=== PATIENT | male | born 1955 | race Caucasian/White ===

== ENCOUNTER 2019-04-20 15:50 | Inpatient (IN) ==
[2019-04-20] MEDS ORDERED: Aspirin 81 MG TAB.CHEW PO ONE (16:15)
--- NOTE | 2019-04-20 16:20 | Emergency Department Note ---
Disposition Clinical Impression: CVA (cerebral vascular accident) Qualifiers: CVA mechanism: unspecified Qualified Code(s): I63.9 - Cerebral infarction, unspecified Disposition: Admitted As Inpatient Condition: Good Time of Disposition: 18:44 General Adult HPI - General Chief complaint: ED Dizziness Stated complaint: Right arm numbness,dizziness Time Seen by Provider: 04/20/19 16:02 Nursing Notes Reviewed: Yes Vital Signs Reviewed: Yes - History of Present Illness HPI Narrative: 63yo male presents with son bedside for evaluation of RUE numbness. Last known well was 3pm yesterday; 25hrs prior to arrival. Patient awoke this afternoon from a nap and felt unwell. Prior to this, he had been sitting under a shade tree; no notable exertion. 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 No trauma. No EtOH or illicit substances. PMH: HTN, HLD, hx CVA Patient takes medications but does not know any of his medications. ROS: Pos: RUE numbness Neg: any extremity weakness, fall, confusion, headache, chest pain, palpitations, dyspnea, diaphoresis, abdominal pain. Pain Scale: 0 - Related Data Home Medications Medication Instructions Recorded Confirmed Unable To Obtain [Unable to Obtain] 04/20/19 04/20/19 Allergies Allergy/AdvReac Type Severity Reaction Status Date / Time No Known Allergies Allergy Verified 08/26/18 10:40 All systems ED: reviewed and negative except as stated. Review of Systems: As Per HPI Past Medical History - Past Medical History Medical history: Reports: hyperlipidemia, hypertension, TIA - Social History Smoking Status: Current every day smoker Smokeless Tobacco Status: No Alcohol use: Reports: none Drug use: Reports: none Physical Exam Vital Signs Reviewed General: Patient is alert, oriented, and in no acute distress. Patient appears ill kempt. Head: atraumatic, normocephalic Eye: normal appearance, PERRL, EOMI, no scleral icterus, no conjunctival in jection ENT: mucous membranes moist, normal external ear exam Neck: normal inspection, trachea midline, full ROM Chest: normal inspection, symmetric chest rise Respiratory: Good respiratory effort. Next report phase. Bilateral breath sounds are clear without wheezing, crackles, or rhonchi. Cardiovascular: Regular rate and rhythm. No clicks, rubs, gallops, or murmors. Normal heart sounds. Bilateral radial pulses 2/4 equal. Abdomen: Bowel sounds present normoactive. Abdomen is soft, nondistended, and nontender. No guarding or rebound. No organomegaly noted. Musculoskeletal: Spontaneously moving all extremities. Skin: warm, dry, intact. Neuro: GCS 15. Patient is very hard of hearing but will answer questions appropriately. Extremity strength 5/5 and equal in bilateral upper and lower extremities. Right upper extremity pronator drifts that does not hit the bed. Positive finger to nose in the right upper extremity. Reduced sensation to light touch in the right upper extremity. Left upper extremity sensation intact with negative left upper extremity finger to nose and no left pronator drift. No limb drift in the bilateral lower extremities. Sensation light touch equal bilateral lower extremity is. Patient is answering questions appropriately without slurring of speech or facial asymmetry. Psych: Patient's affect is appropriate for situation. Course Course Narrative: LKW 25hours prior to arrival. NIHSS 3 EKG dated 04/20/2018 at 16:11 interpreted as sinus rhythm with rate of 89. AK 158, QRS 99, QTC 432. Normal axis. Good R-wave progression. Nonspecific ST-T changes. No previous EKG for comparison. Chart check shows: PMH: hypertension, hyperlipidemia, GERD, CAD with no stents, BPH Medications: amlodipine, aspirin 81 mg, carvedilol, Lasix, lisinopril- hydrochlorothiazide, omeprazole, potassium chloride, simvastatin, tamsulosin Serum hematology serum chemistry unremarkable. CT head shows late subacute ischemia to the medial temporal occipital lobe. Patient provided 324 aspirin. I discussed the above with the on-call neurologist, Dr. Holland. Discussed the patient's history, presentations, CT scan, aspirin. Recommend CTA head and neck at this time as well as admission to the hospital for stroke workup. Consult placed. I discussed the above with the admitting hospitalist, Dr. Bronson, who agrees us at the patient for CVA with plan for stroke workup. Head CT 04/20/19 16:16 IMPRESSION: Wedge-shaped area of hypodensity within the left medial temporal and the left occipital lobe, compatible with age-indeterminate ischemia, probably late subacute. Additional focal areas of chronic ischemia within the basal ganglia bilaterally. No acute abnormality is detected. D/ / Сергей Peoples MD / Сергей Peoples MD Interpreting Provider: Сергей Peoples MD Vital Signs Temperature 98.0 F 04/20/19 15:52 Pulse Rate 93 04/20/19 15:52 Respiratory Rate 16 04/20/19 15:52 Blood Pressure 149/88 04/20/19 15:52 O2 Sat by Pulse Oximetry 96 04/20/19 15:52 Temperature 98.0 F 04/20/19 16:33 Pulse Rate 79 04/20/19 18:00 Respiratory Rate 16 04/20/19 16:33 Blood Pressure 135/71 04/20/19 18:00 O2 Sat by Pulse Oximetry 96 04/20/19 16:33 Oxygen Delivery Oxygen Delivery Room Air Medical Decision Making - Lab Data Result diagrams: 04/20/19 16:19 04/20/19 16:19 Lab Results 04/20/19 04/20/19 04/20/19 Range/Units 16:19 16:19 16:19 WBC 9.5 (4.3-11.1) K/mcL RBC 5.35 (4.19-5.50) M/mcL Hgb 16.5 (12.9-16.9) g/dL Hct 48.8 (37.5-50.1) % MCV 91.2 (83.0-100.0) fL MCH 30.8 (28.0-33.3) pg MCHC 33.8 (31.6-35.5) g/dL RDW 13.2 (11.5-14.5) % Plt Count 237 (140-400) K/mcL MPV 10.6 (9.4-12.4) fL PT 13.4 H (9.4-12.1) Seconds INR 1.2 APTT 32.5 (26.0-36.0) Seconds Sodium 138 (136-145) mEq/L Potassium 3.8 (3.5-5.1) mEq/L Chloride 105 (98-107) mEq/L Carbon Dioxide 26 (23-29) mEq/L BUN 19 (8-23) mg/dL Creatinine 0.94 (0.70-1.30) mg/dL Est GFR ( Amer) > 60 (> 60) Est GFR (Non-Af Amer) > 60 (> 60) BUN/Creatinine Ratio 20 (6-26) Glucose 105 (70-105) mg/dL Calculated Osmolality 289 (280-300) Calcium 9.6 (8.6-10.3) mg/dL Creatine Kinase 30 (30-223) Units/L Troponin I < 0.03 (< 0.04) ng/mL NIH Stroke Scale - Level of Consciousness LOC: Alert - LOC Questions LOC Questions: Answers both correctly - LOC Commands LOC Commands: Performs both correctly - Best Gaze Best Gaze: Normal - Visual Visual: No visual loss - Facial Palsy Facial Palsy: Normal - Motor Arms Motor Arm-Left: No drift for 10 seconds Motor Arm-Right: Drift, does NOT hit bed - Motor Legs Motor Leg-Left: No drift for 5 seconds Motor Leg-Right: No drift for 5 seconds - Limb Ataxia Limb Ataxia: Present in ONE limb - Sensory Sensory: Mild to moderate loss, "not as sharp" - Best Language Best Language: No aphasia - Dysarthria Dysarthria: Normal - Extinction and Inattention Extinction and Inattention: Normal - NIHSS Total Score NIHSS Total Score: 3
[2019-04-20 16:30] LABS: Hematocrit 48.8 % (37.5-50.1); Hemoglobin 16.5 g/dL (12.9-16.9); Mean Corpuscular HGB Conc 33.8 g/dL (31.6-35.5); Mean Corpuscular Hemoglobin 30.8 pg (28.0-33.3); Mean Corpuscular Volume 91.2 fL (83.0-100.0); Mean Platelet Volume 10.6 fL (9.4-12.4); Platelet Count 237 K/mcL (140-400); Red Blood Count 5.35 M/mcL (4.19-5.50); Red Cell Distribution Width 13.2 % (11.5-14.5); White Blood Count 9.5 K/mcL (4.3-11.1)
[2019-04-20] MEDS ORDERED: 0.9 % Sodium Chloride 1,000 ML IVC ONE (16:33)
[2019-04-20 16:38] LABS: INR 1.2; Prothrombin Time 13.4 Seconds (9.4-12.1)
[2019-04-20 16:40] LABS: Activated Partial Thrombo Time 32.5 Seconds (26.0-36.0)
[2019-04-20 16:52] LABS: BUN/Creatinine Ratio 20 (6-26); Blood Urea Nitrogen 19 mg/dL (8-23); Calcium 9.6 mg/dL (8.6-10.3); Carbon Dioxide 26 mEq/L (23-29); Chloride 105 mEq/L (98-107); Glucose 105 mg/dL (70-105); Osmolality,Calculated 289 (280-300); Potassium 3.8 mEq/L (3.5-5.1); Sodium 138 mEq/L (136-145); Troponin I < 0.03 ng/mL (< 0.04); eGFR For African Americans > 60 (> 60); eGFR For Non-African Americans > 60 (> 60)
[2019-04-20 17:50] LABS: Creatine Kinase 30 Units/L (30-223)
--- NOTE | 2019-04-20 18:15 | Emergency Department Note ---
Disposition Clinical Impression: CVA (cerebral vascular accident) Qualifiers: CVA mechanism: unspecified Qualified Code(s): I63.9 - Cerebral infarction, unspecified Disposition: Admitted As Inpatient Condition: Good Forms: ED Satisfaction Letter Time of Disposition: 18:15 General Adult HPI - General Chief complaint: ED Dizziness Stated complaint: Right arm numbness,dizziness Time Seen by Provider: 04/20/19 16:02 Source: patient, family Limitations: no limitations - History of Present Illness Pain Scale: 0 - Related Data Home Medications Medication Instructions Recorded Confirmed Unable To Obtain [Unable to Obtain] 04/20/19 04/20/19 Allergies Allergy/AdvReac Type Severity Reaction Status Date / Time No Known Allergies Allergy Verified 08/26/18 10:40 Past Medical History - Past Medical History Medical history: Reports: hyperlipidemia, hypertension, TIA Psychiatric history: Reports: no psych history - Social History Smoking Status: Current every day smoker Smokeless Tobacco Status: No Alcohol use: Reports: none Drug use: Reports: none Physical Exam - General Limitations: no limitations General appearance: alert, in no apparent distress Course Vital Signs Temperature 98.0 F 04/20/19 15:52 Pulse Rate 93 04/20/19 15:52 Respiratory Rate 16 04/20/19 15:52 Blood Pressure 149/88 04/20/19 15:52 O2 Sat by Pulse Oximetry 96 04/20/19 15:52 Temperature 98.0 F 04/20/19 16:33 Pulse Rate 93 04/20/19 16:33 Respiratory Rate 16 04/20/19 16:33 Blood Pressure 149/88 04/20/19 16:33 O2 Sat by Pulse Oximetry 96 04/20/19 16:33 Oxygen Delivery Oxygen Delivery Room Air Medical Decision Making - Lab Data Result diagrams: 04/20/19 16:19 04/20/19 16:19 Lab Results 04/20/19 04/20/19 04/20/19 Range/Units 16:19 16:19 16:19 WBC 9.5 (4.3-11.1) K/mcL RBC 5.35 (4.19-5.50) M/mcL Hgb 16.5 (12.9-16.9) g/dL Hct 48.8 (37.5-50.1) % MCV 91.2 (83.0-100.0) fL MCH 30.8 (28.0-33.3) pg MCHC 33.8 (31.6-35.5) g/dL RDW 13.2 (11.5-14.5) % Plt Count 237 (140-400) K/mcL MPV 10.6 (9.4-12.4) fL PT 13.4 H (9.4-12.1) Seconds INR 1.2 APTT 32.5 (26.0-36.0) Seconds Sodium 138 (136-145) mEq/L Potassium 3.8 (3.5-5.1) mEq/L Chloride 105 (98-107) mEq/L Carbon Dioxide 26 (23-29) mEq/L BUN 19 (8-23) mg/dL Creatinine 0.94 (0.70-1.30) mg/dL Est GFR ( Amer) > 60 (> 60) Est GFR (Non-Af Amer) > 60 (> 60) BUN/Creatinine Ratio 20 (6-26) Glucose 105 (70-105) mg/dL Calculated Osmolality 289 (280-300) Calcium 9.6 (8.6-10.3) mg/dL Creatine Kinase 30 (30-223) Units/L Troponin I < 0.03 (< 0.04) ng/mL Attestation Statement - Attestation Attestation: I reviewed the residents documentation and agree with the residents assessment and plan of care. I have personally had face to face time with the patient. (Brief History, Brief Exam, and MDM) I personally supervised and was present for the irving/critical portions of the following procedures completed by the resident: (add procedures performed here). 63 year old male presnts to the eD with complaints of right arm numbness and loss of strength and dificulty with finger to nose. Garcia states that this has been going on since 3:00pm yesterday and that he went to bed and woke up and it was worse. Garcia appesrs to have a late subacute stroke on the left hemisphere and we have discussed case with neurology who recommends admission to the hospital. Patient is agreeable to the plan.
[2019-04-20] MEDS ORDERED: Isovue-370 500 ML BOTTLE IVP ONE (18:26)
[2019-04-20 20:20] LABS: Chol/HDL Ratio 5.9 (0-4.9); Cholesterol 200 mg/dL (< 200); HDL Cholesterol 34 mg/dL (40-59); LDL Cholesterol,Calculated 128 mg/dL (0-99); Triglycerides 188 mg/dL (< 150)
[2019-04-20 20:34] LABS: Thyroid Stimulating Hormone 1.638 mcIU/mL (0.340-5.600)
--- NOTE | 2019-04-20 21:08 | Internal Med History&Physical ---
Date of Encounter: 04/20/19 Time of Encounter: 21:07 Internal Medicine - H&P: HPI Chief complaint: dizziness Admitted From: Home Plans for Post Hospital Care: Home History of present illness: Rodger Wolfe is a 63 year old man every day smoker with hypertension, hyperlipidemia and prior CVA who was brought to the emergency room with a complaint of right upper extremity numbness and weakness that started yesterday at 3 PM he was brought in now because he woke up this afternoon and felt generally unwell, tired and dizzy. CVA history reportedly affected his left side for 5 years ago but has no sequela of this. Denies history of alcohol or illicit drug use. He reports adherence to his medications but does not recall what his medications are. He was hemodynamically stable. Stroke alert was not called because of the time of onset however our neurologist was contacted for further recommendations. Head CT showed a wedge-shaped area of hypodensity within the left medial temporal and the left occipital lobe compatible with age- indeterminate ischemia probably late subacute. Additional focal areas of chronic ischemia within the basal ganglia bilaterally. 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 He is admitted for further care. He denies having headache, ongoing dizziness, and chest pain but feels generally fatigued. Vitals: Reviewed General: Obese white man lying in bed in NAD Skin: Warm and dry. HEENT: Moist mucous membranes. No conjunctivae pallor. Neck: No lymphadenopathy. No JVD. No carotid bruits. No palpable thyroid. Chest: Normal thoracic expansion. Normal breath sounds. Clear to auscultation. Heart: Normal S1 & S2; rhythmic. No rubs or murmurs. Abdomen: soft and non-tender to palpation. No peritoneal reaction. Extremities: 3-4/5 RUE/RLE strength. Left extremities with sensation and s trength intact. Neurological: Awake, alert and oriented to person. Psych: Affect appropriate. Assessment/Plan 1. Acute CVA: Will start aspirin and statin therapy. Will undergo urgent MRI. Neurology consultation requested. Perform echo in the morning. Monitor on telemetry. 2. HTN: Well controlled at this time. Await home meds confirmation. 3. Hyperlipidemia: Check lipid panel. Start statin. 4. Tobacco use: 5 minutes were spent counseling and educating the patient on this habit. resident services director and resources were made available. Past Med Surg Social Fam HX - Past Medical History Medical history: hyperlipidemia, hypertension, TIA Psychiatric history: no psych history - Social History Smoking Status: Current every day smoker Smokeless Tobacco Status: No Alcohol use: none Drug use: none Internal Medicine - H&P: Meds Unable To Obtain [Unable to Obtain] 04/20/19 [History] Allergy/AdvReac Type Severity Reaction Status Date / Time No Known Allergies Allergy Verified 08/26/18 10:40 All Systems PM: A 10-system review of systems was performed and is negative for pertinent findings except as documented above in the HPI. Family history reviewed and f ound non-contributory. - Constitutional Vitals: Temp Pulse Resp BP Pulse Ox 97.7 F 90 16 127/67 98 04/20/19 20:08 04/20/19 20:08 04/20/19 20:08 04/20/19 20:08 04/20/19 20:08 Exam: . Internal Med - H&P Results - Labs CBC & Chem 7: 04/20/19 16:19 04/20/19 16:19 Labs: Short CBC 04/20/19 Range/Units 16:19 WBC 9.5 (4.3-11.1) K/mcL Hgb 16.5 (12.9-16.9) g/dL Hct 48.8 (37.5-50.1) % Plt Count 237 (140-400) K/mcL BMP 04/20/19 16:19 Sodium 138 Potassium 3.8 Chloride 105 Carbon Dioxide 26 BUN 19 Creatinine 0.94 Glucose 105 Calcium 9.6 Cardiac Enzymes 04/20/19 Range/Units 16:19 Troponin I < 0.03 (< 0.04) ng/mL - Impressions ITS Impressions Head CT 04/20/19 16:16 IMPRESSION: Wedge-shaped area of hypodensity within the left medial temporal and the left occipital lobe, compatible with age-indeterminate ischemia, probably late subacute. Additional focal areas of chronic ischemia within the basal ganglia bilaterally. No acute abnormality is detected. D/ / Сергей Peoples MD / Сергей Peoples MD Interpreting Provider: Сергей Peoples MD Head CTA 04/20/19 18:26 IMPRESSION: No focal significant arterial narrowing in the neck. 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 Multifocal mild right [employer] narrowing Critical results were called by Dr. Thad Ruiz to Dr. Naidu On 04/20/2019 at 20:09. D/ / Thad Ruiz / Thad Ruiz Interpreting Provider: Thad Ruiz Neck CTA 04/20/19 18:26 IMPRESSION: No focal significant arterial narrowing in the neck. 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 Multifocal mild right [employer] narrowing Critical results were called by Dr. Thad Ruiz to Dr. Naidu On 04/20/2019 at 20:09. D/ / Thad Ruiz / Thad Ruiz Interpreting Provider: Thad Ruiz - Time Spent With Patient Total time spent is greater than 50% in coordination of care (as documented) at patient's floor/unit and/or counseling patient: Greater than 35 minutes
[2019-04-20 21:30] LABS: Estimated Average Glucose 140 mg/dl
[2019-04-20] MEDS: Acetaminophen 325 MG TABLET PO PRN (22:10)
--- NOTE | 2019-04-20 23:10 | Event Note ---
Date of Encounter: 04/20/19 Time of Encounter: 20:02 Alerted by patient's nurse JADA Castillo that [facility] had called about the patient's CTA of the head and neck and wished to speak with me. Spoke to Dr. 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 Multifocal mild right [employer] narrowing. Paged Dr. Holland to discuss these results w/recommendation to continue aspirin and monitor pt. closely until he can see him in the a.m. MRI of the head/brain ordered by Dr. Garcia d/t pts. CVA sx which showed a large area of acute infarct in the left temporal occipital region extending superiorly towards the parietooccipital junction and the inferolateral aspect of the splenic a.m. of the corpus callosum. Curvilinear dark gradient echo signal in the left occipital pole raises the question of petechial hemorrhage. Multiple old infarcts. Paged Dr. Holland once again to discuss these new MRI findings. Dr. Holland recommends keeping the pt. here since there is no surgical intervention needed and to continue the plan as outlined and Neurology will see the pt. tomorrow. Pt. is alert and oriented and hemodynamically stable at this time. Q2HR Neuro checks ordered. [facility] HOP. Aspiration precautions w/meals and drinking. NIHSS Modifieds. Dr. Garcia made aware of these plans. Nurse instructed to continue monitoring the pt. closely and alert me immediately of any adverse changes.
[2019-04-21] MEDS ORDERED: *HR* Heparin 5,000 UNIT/ML VIAL SQ SCH (06:00)
[2019-04-21 07:12] LABS: Hematocrit 49.3 % (37.5-50.1); Hemoglobin 16.4 g/dL (12.9-16.9); Mean Corpuscular HGB Conc 33.3 g/dL (31.6-35.5); Mean Corpuscular Hemoglobin 30.7 pg (28.0-33.3); Mean Corpuscular Volume 92.3 fL (83.0-100.0); Mean Platelet Volume 10.7 fL (9.4-12.4); Platelet Count 196 K/mcL (140-400); Red Blood Count 5.34 M/mcL (4.19-5.50); Red Cell Distribution Width 13.2 % (11.5-14.5); White Blood Count 6.6 K/mcL (4.3-11.1)
[2019-04-21 07:57] LABS: BUN/Creatinine Ratio 20 (6-26); Blood Urea Nitrogen 16 mg/dL (8-23); Calcium 9.2 mg/dL (8.6-10.3); Carbon Dioxide 27 mEq/L (23-29); Chloride 108 mEq/L (98-107); Glucose 101 mg/dL (70-105); Osmolality,Calculated 291 (280-300); Potassium 4.3 mEq/L (3.5-5.1); Sodium 140 mEq/L (136-145); eGFR For African Americans > 60 (> 60); eGFR For Non-African Americans > 60 (> 60)
[2019-04-21] MEDS ORDERED: Aspirin 81 MG TAB.CHEW PO SCH (09:00)
[2019-04-21] MEDS: amLODIPine 5 MG TABLET PO SCH (09:40)
--- NOTE | 2019-04-21 11:30 | Neurology - Consult Note ---
Date of Encounter: 04/21/19 Time of Encounter: 11:28 Assessment and Plan (1) CVA (cerebral vascular accident) Current Visit: Yes Status: Acute Patient developed acute cerebral infarct secondary to left GRASS FARMER occlusion. Was on Aspirin 81mg daily and has had CVA 4 years ago. Would suggest to switch antiplatelet therapy from aspirin to Plavix. Continue statin therapy. Await stroke work up including echocardiography. Patient needs CPAP therapy as an outpatient. Patient advised not to drive due to right hemianopsia. Risk factor modification advised. follow up in neurology in 2-3 weeks with me to start him on CPAP therapy. Qualifiers: CVA mechanism: occlusion Precerebral and cerebral artery: posterior cerebral artery Laterality of affected vessel: left Qualified Code(s): I63.532 - Cerebral infarction due to unspecified occlusion or stenosis of left posterior cerebral artery History of Present Illness Chief complaint: dizziness, confusion and right facial numbness HPI: Mr. Wolfe is a 63 year old male with PMH significant for CVA 4 years ago, HTN, DEJON, obesity who developed acute onset of dizziness, not feeling well and visual changes. This occurred yesterday sometime in the morning and the patient can not remember exactly what happened. He was doing something and suddenly developed dizziness. He was brought to ER and initial CT of head showed wedge-shaped area of hypodensity within the left medial temporal and the left occipital lobe, compatible with age-indeterminate ischemia, probably late subacute. Patient not considered tPA candidate due to time of onset unknown. CTA of head showed occlusion of left GRASS FARMER. MRI of brain confirmed ischemic infarct in the area mentioned above. Patient has had stroke 4 years ago told to have a small stroke. Was started on Aspirin 81mg daily. He has also diagnosed DEJON but has not been on CPAP therapy. Patient seen at the bedside and he is feeling much better today. No focal weakness but testing showed right hemianopsia. Past Med Surg Social Fam HX - Past Medical History Medical history: hyperlipidemia, hypertension, TIA Psychiatric history: no psych history - Social History Smoking Status: Current every day smoker Smokeless Tobacco Status: No Alcohol use: none Drug use: none Medications and Allergies Simvastatin [Zocor] 20 mg PO HS 04/21/19 [History] Tamsulosin HCl [Flomax] 0.4 mg PO BID 04/21/19 [History] amLODIPine [Norvasc] 5 mg PO DAILY 04/21/19 [History] Allergy/AdvReac Type Severity Reaction Status Date / Time No Known Allergies Allergy Verified 08/26/18 10:40 All Systems: The remainder of the systems were reviewed and are negative - Constitutional Constitutional ROS IM: anorexia (no), chills (no), daytime sleepiness (no), excessive sweating (no) - Nose, Mouth, Throat Nose, mouth and throat: abnormal hearing (no), dizziness (yes), dry mouth (yes) - Cardiovascular Cardiovascular ROS IM: chest pain (no), chest pain at rest (no) - Respiratory Respiratory IM: cough (no), dyspnea (no), hemoptysis (no), dyspnea on exertion (no) - Gastrointestinal Gastrointestinal: abdominal pain (no) - Musculoskeletal Musculoskeletal ROS IM: arthralgias (no), back pain (no) - Neurological Neurological ROS: abnormal gait (no), abnormal hearing (no), abnormal movements (no), abnormal speech (no), dizziness (yes), other visual disturbances - Psychiatric Psychiatric general PM: auditory hallucinations (no), behavioral changes (no), suicidal ideation (no) Physical Examination - Vital Signs Vital Signs: Initial Vital Signs Temp Pulse Resp BP Pulse Ox 98.0 F 93 16 149/88 96 04/20/19 15:52 04/20/19 15:52 04/20/19 15:52 04/20/19 15:52 04/20/19 15:52 - Constitutional General appearance: comfortable - Neurologic Sensorimotor examination: intact Detailed motor examination: full strength in all major muscle groups Motor examination - right side: 5/5: deltoids, biceps, triceps, wrist flexion, wrist extension, facsimile machine operator, hip flexors, tibialis Anterior, quadriceps, toe extension (EHL), plantarflexion Motor examination - left side: 5/5: deltoids, biceps, triceps, wrist flexion, wrist extension, hip flexors, facsimile machine operator, quadriceps, tibialis Anterior, toe extension (EHL), plantarflexion Detailed sensory examination: intact Posture: other (none) Reflexes: Biceps: 1+, Triceps: 1+, Brachioradialis: 1+, Patella: 1+, Achilles: 1+ Mental Status Examination: awake, alert, oriented to person, oriented to place, oriented to time, follows commands appropriately, answers questions appropriately, no agnosia, no aphasia, no aproxia Cranial nerve examination: PERRL, EOMI, visual calvin intact (right hemianopsia noted), corneal reflexes brisk symmetrically, sensory to face intact, mastic ation intact, no facial asymmetry is present, no dysarthria, hearing is intact symmetrically, soft palate elevates bilaterally upon phonation, gag reflex intact, flexes SCM and trapezius muscles symmetrically with full power, tongue protrudes midline, no atrophy or facial fasiculations present Results - Laboratory Findings CBC and BMP: 04/21/19 06:44 04/21/19 06:44 Abnormal lab findings: Abnormal lab results PT 13.4 Seconds (9.4-12.1) H 04/20/19 16:19 Chloride 108 mEq/L (98-107) H 04/21/19 06:44 Hemoglobin A1c 6.5 % (-5.6) H 04/20/19 19:00 Triglycerides 188 mg/dL (< 150) H 04/20/19 16:19 Cholesterol 200 mg/dL (< 200) H 04/20/19 16:19 LDL Cholesterol, Calc 128 mg/dL (0-99) H 04/20/19 16:19 VLDL Cholesterol, Calc 38 mg/dL (< 31) H 04/20/19 16:19 HDL Cholesterol 34 mg/dL (40-59) L 04/20/19 16:19 Cholesterol/HDL Ratio 5.9 (0-4.9) H 04/20/19 16:19 - Diagnostic Findings Additional findings: CT OF THE HEAD WITHOUT CONTRAST 04/20/2019 2:14 pm TECHNIQUE: CT of the head was performed without the administration of intravenous contrast. Dose modulation, iterative reconstruction, and/or weight based adjustment of the mA/kV was utilized to reduce the radiation dose to as low as reasonably achievable. COMPARISON: None. HISTORY: ORDERING SYSTEM PROVIDED HISTORY: RUE decr sensation. LKW 25hrs GEOMORPHOLOGIST. FINDINGS: BRAIN/VENTRICLES: Wedge-shaped area of hypodensity is identified within the left occipital lobe, compatible with age-indeterminate ischemia, probably late subacute. No acute loss of the liu-white matter differentiation is identified. Focal chronic infarcts are identified within the basal ganglia bilaterally. No masses or hemorrhages within the brain parenchyma are found. Intracranial vasculature, including the dural venous sinuses, is unremarkable. ORBITS: No orbital abnormalities identified. SINUSES: Paranasal sinuses and mastoid air cells are clear. SOFT TISSUES/SKULL: Calvarium is intact. Extracranial soft tissues unremarkable. CT/CT head/brain wo con IMPRESSION: Wedge-shaped area of hypodensity within the left medial temporal and the left occipital lobe, compatible with age-indeterminate ischemia, probably late subacute. Additional focal areas of chronic ischemia within the basal ganglia bilaterally. No acute abnormality is detected. D/ / Сергей Peoples MD / Сергей Peoples MD Interpreting Provider: Сергей Peoples MD OF THE NECK; CTA OF THE HEAD WITHOUT AND WITH CONTRAST 04/20/2019 7:21 pm: TECHNIQUE: CTA of the neck was performed with the administration of intravenous contrast. Multiplanar reformatted images are provided for review. MIP images are provided for review. Stenosis of the internal carotid arteries measured using NASCET criteria. Dose modulation, iterative reconstruction, and/or weight based adjustment of the mA/kV was utilized to reduce the radiation dose to as low as reasonably achievable.; CTA of the head/brain was performed without and with the administration of intravenous contrast. Multiplanar reformatted images are provided for review. MIP images are provided for review. Dose modulation, iterative reconstruction, and/or weight based adjustment of the mA/kV was utilized to reduce the radiation dose to as low as reasonably achievable. COMPARISON: None. HISTORY: ORDERING SYSTEM PROVIDED HISTORY: late subacute cerebral ischemia; ORDERING SYSTEM PROVIDED HISTORY: late subacut cerebral ischem,RUE deficit.LKW 25+hr FINDINGS: CTA NECK: AORTIC ARCH/ARCH VESSELS: Vascular calcifications are noted. Otherwise, limited evaluation of the aorta demonstrates no focal abnormality. Great vessel origins are patent CAROTID ARTERIES: Left: Common carotid artery is patent to the bifurcation level. Calcifications are noted at the bifurcation and proximal left internal carotid artery. There is no focal significant narrowing. Right: Common carotid artery is patent. Bifurcation is patent. Right internal carotid artery is patent to the skull base VERTEBRAL ARTERIES: Right vertebral artery is larger than the left. Both are patent without focal significant narrowing. SOFT TISSUES: Multiple small cervical nodes are present. There is no pathologic enlargement. Multilevel intermediate density is noted in the anterior epidural space in the cervical spine. Venous plexus congestion is favored. Blood density would be difficult to exclude completely. BONES: No acute cervical osseous abnormality CTA HEAD: ANTERIOR CIRCULATION: Distal internal carotid artery calcifications are noted bilaterally. There is no focal significant narrowing. There is a tiny left posterior communicating artery. No middle or anterior cerebral artery narrowing is noted. POSTERIOR CIRCULATION: Right distal vertebral artery is larger than the left. Both are patent. Basilar artery is patent. There is occlusion of the left posterior cerebral artery just distal to its origin. Mild multifocal narrowing in the right posterior cerebral artery is noted. BRAIN: No midline shift is noted. Brain parenchymal detail is limited. Multiple old infarcts are noted. Again noted is a left medial temporal occipital ill-defined low-density. Low-density in the inferior right cerebellar parenchyma is not as well seen. CT/CT angio head IMPRESSION: No focal significant arterial narrowing in the neck. 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 Multifocal mild right GRASS FARMER narrowing Critical results were called by Dr. Thad Ruiz to Dr. Naidu On 04/20/2019 at 20:09. D/ / Thad Ruiz / Thad Ruiz Interpreting Provider: Thad Ruiz Consult Discharge Plan - Plan Referrals: Tasia Herrera CNP [Primary Care Provider] -
[2019-04-21] MEDS: Acetaminophen 325 MG TABLET PO PRN (17:27)
--- NOTE | 2019-04-21 18:42 | Internal Med Progress Note ---
Hospitalist Progress Note - Encounter Date of Encounter: 04/21/19 Time of Encounter: 16:00 - Subjective Interval History: Mr Wolfe denies any headache but does report some loss of vision in his right eye which is acute. Of note he has been diagnosed with large acute infarct in the left tempo/ occipital region with some narrowing of ARTIFICIAL SNOW MAKING MACHINE OPERATOR branches. GEN: Denies fever, chills or malaise HEENT: Denies headache or dysphagia RESP: Denies SOB or cough CV: Denies chest pain or palpitations GI: Denies Nausea, vomiting, diarrhea or constipation Reviewed current in hospital medications with modifications see orders Reviewed Routine labs - Exam Vitals: Temp Pulse Resp BP Pulse Ox 98.4 F 78 16 145/86 94 04/21/19 16:20 04/21/19 16:20 04/21/19 16:20 04/21/19 16:20 04/21/19 16:20 Exam: GEN: NAD, A&O x 3, Pleasant and conversant and grandson at his bedside SKIN: [place] warm acyanotic not jaundice HEART: RRR, no murmurs LUNGS: CTA no wheeze or crackles, overall non labored ABDOMEN; Soft, non tender or distended, BS x 4 normactive EXT: No LE edema, Pedal pulses 1+, radial pulses 2+ PSYCH: Mood and affect is appropriate Neuro: Cranial nerve II-12 grossly intact as examined however with cerebellar testing dysmetria noted with the right hand - Assessment and Plan (1) CVA (cerebral vascular accident) Current Visit: Yes Status: Acute Assessment and Plan: This was confirmed on his MRI showed Large area of acute infarct in the left temporal occipital region as well as prior history of prior strokes. 2-D echo with bubble study was unremarkable, CTA head and neck does reveal No focal significant arterial narrowing in the neck. Occluded left posterior cerebral artery just distal to its origin.Multifocal mild right ARTIFICIAL SNOW MAKING MACHINE OPERATOR narrowing. Goal is for secondary prevention Plavix was added to his aspirin on statin, speech therapy evaluation PT/OT and likely placement to rehabilitation facility although he is reluctant. (2) Diabetes mellitus type 2 in obese Current Visit: Yes Status: Acute Assessment and Plan: Another modifiable risk factor hemoglobin A1c is 6.5 he denies prior diagnosis we will initiate insulin therapy (3) HTN (hypertension) Current Visit: Yes Status: Acute Assessment and Plan: BP slightly elevated but at goal for recent stroke patient (4) HLD (hyperlipidemia) Current Visit: Yes Status: Acute Assessment and Plan: Likely underlying etiology LDL not at goal continue statin (5) Tobacco dependence Current Visit: Yes Status: Acute Assessment and Plan: Encouraged nicotine cessation DVT Prophylaxis: Heparin per protocol DVT prophylaxis - Time Spent with Patient Total time spent is greater than 50% in coordination of care (as documented) at patient's floor/unit and/or counseling patient: Internal Medicine: Result - Labs CBC & Chem 7: 04/21/19 06:44 04/21/19 06:44 Labs: Short CBC 04/21/19 Range/Units 06:44 WBC 6.6 (4.3-11.1) K/mcL Hgb 16.4 (12.9-16.9) g/dL Hct 49.3 (37.5-50.1) % Plt Count 196 (140-400) K/mcL BMP 04/21/19 06:44 Sodium 140 Potassium 4.3 Chloride 108 H Carbon Dioxide 27 BUN 16 Creatinine 0.80 Glucose 101 Calcium 9.2 - ABG Interpretation ABG results: PT/INR, D-dimer PT 13.4 Seconds (9.4-12.1) H 04/20/19 16:19 - Impressions Impressions Head CTA 04/20/19 18:26 IMPRESSION: No focal significant arterial narrowing in the neck. 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 Multifocal mild right ARTIFICIAL SNOW MAKING MACHINE OPERATOR narrowing Critical results were called by Dr. Thad Ruiz to Dr. Naidu On 04/20/2019 at 20:09. D/ / Thad Ruiz / Thad Ruiz Interpreting Provider: Thad Ruiz Neck CTA 04/20/19 18:26 IMPRESSION: No focal significant arterial narrowing in the neck. 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 Multifocal mild right ARTIFICIAL SNOW MAKING MACHINE OPERATOR narrowing Critical results were called by Dr. Thad Ruiz to Dr. Naidu On 04/20/2019 at 20:09. D/ / Thad Ruiz / Thad Ruiz Interpreting Provider: Thad Ruiz Brain MRI 04/20/19 19:40 IMPRESSION: Large area of acute infarct in the left temporal occipital region extending superiorly toward the parietooccipital junction and the inferolateral aspect of the splenium of the corpus callosum. Curvilinear dark gradient echo signal in the left occipital pole raises the question of petechial hemorrhage. Multiple old infarcts. D/ / Thad Ruiz / Thad Ruiz Interpreting Provider: Thad Ruiz Echocardiogram 04/20/19 21:03 Impressions: LVEF 55-60%. Mild left ventricular diastolic dysfunction. Normal right ventricular structure and function. No significant valvular dysfunction. No evidence of pulmonary hypertension. Non-diagnostic of PFO with agitated saline contrast. Left Ventricular Wall Motion: Rest Echo Findings All wall segments showed normal motion. Findings: Study Quality * Technically sub-optimal due to poor echocardiographic windows. ECG Findings * Normal sinus rhythm. Left Ventricle * LVEF 55-60%. * Normal LV chamber size, wall thickness and systolic function. * Mild left ventricular diastolic dysfunction. * Definity echo contrast was not used. Right Ventricle * Normal right ventricular structure and function. Left Atrium * Normal left atrial size. Right Atrium * Normal right atrial size. Interatrial Septum * Non-diagnostic of PFO with agitated saline contrast. Aortic Valve * Aortic valve not well visualized. * No aortic stenosis. * No aortic regurgitation. Mitral Valve * Normal mitral valve structure. * No mitral stenosis. * No mitral regurgitation. Tricuspid Valve * Normal tricuspid valve structure. * No tricuspid stenosis. * Trace tricuspid regurgitation. * Unable to estimate RVSP due to lack of TR jet. * No evidence of pulmonary hypertension. * Estimated RA pressure is 3 mmHg. Pulmonic Valve * Pulmonic valve is not well visualized. * No pulmonic stenosis. * No pulmonic regurgitation. Aorta * Normally sized aortic root. Pericardium * The pericardium appears normal. IVC * The IVC is not dilated. * > 50% respiratory change Consult Discharge Plan - Plan Referrals: Tasia Herrera, HEALTH CARE MARKETING MANAGER [Primary Care Provider] - (1) CVA (cerebral vascular accident) Qualifiers: CVA mechanism: occlusion Precerebral and cerebral artery: posterior cerebral artery Laterality of affected vessel: left Qualified Code(s): I63.532 - Cerebral infarction due to unspecified occlusion or stenosis of left posterior cerebral artery
[2019-04-21] MEDS ORDERED: Dextrose Gel 15 GM/37.5 ML TUBE PO PRN ×2 (18:54)
[2019-04-21] MEDS ORDERED: D5% in Water 1,000 ML IVC PRN (18:54)
[2019-04-21] MEDS ORDERED: *HR* Dextrose 50 % in Water (Syg) 50 ML SYRINGE IVP PRN (18:54)
[2019-04-21] MEDS: Insulin LISPRO 300 UNITS/3 ML VIAL SQ SCH (20:50)
[2019-04-22 02:54] LABS: Basophils # 0.1 K/mcL (0.0-0.2); Basophils % 0.8 %; Eosinophils # 0.2 K/mcL (0.0-0.6); Eosinophils % 1.9 %; Hematocrit 49.6 % (37.5-50.1); Hemoglobin 16.5 g/dL (12.9-16.9); Immature Granulocytes % 0.3 % (0-4); Lymphocytes # 2.9 K/mcL (0.6-4.6); Lymphocytes % 36.2 %; Mean Corpuscular HGB Conc 33.3 g/dL (31.6-35.5); Mean Corpuscular Hemoglobin 31.1 pg (28.0-33.3); Mean Corpuscular Volume 93.6 fL (83.0-100.0); Mean Platelet Volume 10.9 fL (9.4-12.4); Monocytes # 0.7 K/mcL (0.0-1.3); Monocytes % 8.6 %; Neutrophils # 4.1 K/mcL (1.6-8.9); Platelet Count 199 K/mcL (140-400); Red Cell Distribution Width 12.9 % (11.5-14.5); Segmented Neutrophils % 52.2 %; White Blood Count 7.9 K/mcL (4.3-11.1)
[2019-04-22 03:17] LABS: BUN/Creatinine Ratio 19 (6-26); Blood Urea Nitrogen 16 mg/dL (8-23); Calcium 9.1 mg/dL (8.6-10.3); Carbon Dioxide 23 mEq/L (23-29); Chloride 107 mEq/L (98-107); Glucose 102 mg/dL (70-105); Osmolality,Calculated 291 (280-300); Potassium 4.1 mEq/L (3.5-5.1); Sodium 140 mEq/L (136-145); eGFR For African Americans > 60 (> 60); eGFR For Non-African Americans > 60 (> 60)
[2019-04-22] MEDS: amLODIPine 5 MG TABLET PO SCH (08:07)
[2019-04-22] MEDS: Insulin LISPRO 300 UNITS/3 ML VIAL SQ SCH (08:07)
--- NOTE | 2019-04-22 10:29 | Neurology Progress Note ---
<Tay Ryder - Last Filed: 04/22/19 12:33> Date of Encounter: 04/22/19 Time of Encounter: 10:26 Assessment and Plan (1) CVA (cerebral vascular accident) Status: Acute Acute CVA 2/2 lt COMPLIANCE ANALYST occlusion Previous h/o CVA, additional risk factors include HTN, HLD, DM, and smoking echocardiogram- LVEF 55-60%, No PFO, valvular dysfunction or intracardiac thrombus identified on echo read CTA head and neck shows no significant arterial narrowing in the neck but finds an occluded left posterior cerebral artery just distal to its origin and multifocal mild right COMPLIANCE ANALYST narrowing Recommend changing ASA to Plavix and continuing Statin agent Aggressive risk factor modifications advised F/u with Dr. Holland neurology in 2-3 weeks; patient will need CPAP started -Instructed to refrain from driving with hemianopsia Qualifiers: CVA mechanism: occlusion Precerebral and cerebral artery: posterior cerebral artery Laterality of affected vessel: left Qualified Code(s): I63 .532 - Cerebral infarction due to unspecified occlusion or stenosis of left posterior cerebral artery Subjective Principal diagnosis: Acute CVA Interval history: The chart was reviewed, the patient was seen and examined at the bedside today. He continues to have right hemianopsia and right arm weakness but notes that the right arm weakness is improving. He denies any new neurological complaints and his neurological exam does not appear to have significantly changed overnight when compared to findings of my colleague. At this juncture the carotid duplex scan is pending. I have discussed the need for aggressive risk factor modification from this point forward for secondary CVA prevention. Objective - Constitutional Vitals: Temp Pulse Resp BP Pulse Ox 98.3 F 79 17 156/83 94 04/22/19 07:07 04/22/19 07:07 04/22/19 07:07 04/22/19 07:07 04/22/19 07:07 Exam: Examination: General Examination: *CONSTITUTIONAL: Alert and oriented x3, no acute distress *GENERAL APPEARANCE OF PATIENT appears healthy and well groomed *EYES: pupils equal, round, reactive to light and accommodation, conjunctiva clear without masses or ulcerations, fundi normal. *CARDIOVASCULAR: RRR, S1, S2, no mumurs, rubs, or gallops, no peripheral edema, distal temperature normal, dorsalis pedis pulses normal. Refer to vital signs * MUSCULOSKELETAL: *GAIT AND STATION: normal, with normal Romberg testing, no abnormalities such as broad base gait or spasticity *ASSESSMENT OF MUSCLE STRENGTH IN THE UPPER AND LOWER EXTREMITIES bilateral deltoid, bicep, tricep, air shovel operator strength, hip flexors ,anterior tibialis, dorsoflexion of the foot 4/5 *MUSCLE TONE IN THE UPPER AND LOWER EXTREMITIES normal. No abnormal movements, fasciculations or atrophy identified. Neurological: *ORIENTATION to person, situation, time and place *LANGUAGE AND FUNCTION no significant aphasia or dysarthia was noted. *ATTENTION AND CONCENTRATION are normal *LANGUAGE FUNCTION no significant aphasia or dysarthia was noted. *FUND OF KNOWLEDGE aware of current events, past history, vocabulary *MENTAL attention span and concentration normal. *CN II optic fundi were normal, no papilledema noted. *CN III,IV, Mild right pupillary asymmetry and right hemianopsia on exam. Otherwise both pupils are RRLA, extraocular eye movements were full, no nystagmus and no ptosis noted. *CN V shows normal sensation and jaw opens symmetrically. *CN VII shows normal facial movement symmetrically, upper and lower bilaterally. *CN VIII shows no significant hearing loss on exam *CN IX-X palate elevated symmetrically *CN XI normal strength in the sternocleidomastoid muscles, symmetrical shoulder shrugging. *CN XII tongue protruded in the midline, with normal strength and movement. *SENSORY EXAMINATION light touch intact *REFLEXES: deep tendon reflexes were normal and symmetrical , grade 2/4 diffusely, no pathological reflexes were noted. *CEREBELLAR TESTING normal finger to nose, heel/knee/maxwell *PAIN LEVEL 0/10 - Neurological Exam Sensorimotor examination: Present: intact Motor Examination: Present: full strength in all major muscle groups Motor examination - left side: 5/5: deltoids, biceps, triceps, wrist flexion, wrist extension, hip flexors, air shovel operator, quadriceps, tibialis Anterior, toe extension (EHL), plantarflexion Sensation intact: Present: intact Posture: Present: other (none) Mental Status Examination: Present: awake, alert, oriented to person, oriented to place, oriented to time, follows commands appropriately, answers questions appropriately, no agnosia, no aphasia, no aproxia Cranial nerve examination: Present: PERRL, EOMI, visual calvin intact (right hemianopsia noted), corneal reflexes brisk symmetrically, sensory to face intact, mastication intact, no facial asymmetry is present, no dysarthria, hearing is intact symmetrically, soft palate elevates bilaterally upon phonation, gag reflex intact, flexes SCM and trapezius muscles symmetrically with full power, tongue protrudes midline, no atrophy or facial fasiculations present Results - Laboratory Findings CBC and BMP: 04/22/19 01:39 04/22/19 01:39 Abnormal lab findings: Abnormal lab results PT 13.4 Seconds (9.4-12.1) H 04/20/19 16:19 Chloride 108 mEq/L (98-107) H 04/21/19 06:44 POC Glucose 134 mg/dL (70-99) H 04/21/19 09:32 Hemoglobin A1c 6.5 % (-5.6) H 04/20/19 19:00 Triglycerides 188 mg/dL (< 150) H 04/20/19 16:19 Cholesterol 200 mg/dL (< 200) H 04/20/19 16:19 LDL Cholesterol, Calc 128 mg/dL (0-99) H 04/20/19 16:19 VLDL Cholesterol, Calc 38 mg/dL (< 31) H 04/20/19 16:19 HDL Cholesterol 34 mg/dL (40-59) L 04/20/19 16:19 Cholesterol/HDL Ratio 5.9 (0-4.9) H 04/20/19 16:19 Consult Discharge Plan - Plan Instructions: Diabetes Mellitus Type 2 in Adults (DC) Additional Instructions: Please make sure you entered to the treatment plan and to continue medications as prescribed. Make sure participate in occupational and physical therapy, and keep all outpatient follow-up appointments especially with the neurologist Referrals: Tasia Herrera CNP [Primary Care Provider] - 04/29/19 2:00 pm Fernanda Holland MD [Partnered Physician] - (Office will call with date and time of appointment) Prescriptions: metFORMIN [Glucophage] 500 mg PO BIDWM #60 tablet Atorvastatin [Lipitor] 40 mg PO HS #30 tablet amLODIPine [Norvasc] 5 mg PO DAILY #30 tablet Clopidogrel [Plavix] 75 mg PO DAILY #30 tablet Lisinopril [Zestril] 10 mg PO DAILY #30 tablet <Radha Stone I - Last Filed: 04/26/19 08:33> Date of Encounter: 04/22/19 Assessment and Plan (1) CVA (cerebral vascular accident) Status: Acute I have personally performed a face to face diagnostic evaluation, including HPI, EXAM, which is included in the Assesment and plan, which was discussed with Tay Ryder CNP, I agree with the above outlined documentation. Radha Stone MD. NeurologyI Qualifiers: CVA mechanism: occlusion Precerebral and cerebral artery: posterior cerebral artery Laterality of affected vessel: left Qualified Code(s): I63.532 - Cerebral infarction due to unspecified occlusion or stenosis of left posterior cerebral artery Objective - Constitutional Vitals: Temp Pulse Resp BP Pulse Ox 98.2 F 91 17 134/85 97 04/22/19 11:34 04/22/19 11:34 04/22/19 11:34 04/22/19 11:34 04/22/19 11:34 Results - Laboratory Findings CBC and BMP: 04/22/19 01:39 04/22/19 01:39 Abnormal lab findings: Abnormal lab results PT 13.4 Seconds (9.4-12.1) H 04/20/19 16:19 Chloride 108 mEq/L (98-107) H 04/21/19 06:44 POC Glucose 106 mg/dL (70-99) H 04/21/19 20:09 Hemoglobin A1c 6.5 % (-5.6) H 04/20/19 19:00 Triglycerides 188 mg/dL (< 150) H 04/20/19 16:19 Cholesterol 200 mg/dL (< 200) H 04/20/19 16:19 LDL Cholesterol, Calc 128 mg/dL (0-99) H 04/20/19 16:19 VLDL Cholesterol, Calc 38 mg/dL (< 31) H 04/20/19 16:19 HDL Cholesterol 34 mg/dL (40-59) L 04/20/19 16:19 Cholesterol/HDL Ratio 5.9 (0-4.9) H 04/20/19 16:19
[2019-04-22 11:35] VITALS: BP 134/85
--- NOTE | 2019-04-22 11:58 | Discharge Summary ---
- NOTES TO OUTPATIENT PROVIDER Notes to Outpatient Provider: Post hospital discharge from stroke, with a goal of secondary prevention. Patient also was noted to be diabetic with hemoglobin A1c of 6.5 will start on metformin; creatinine at discharge is 0.84 patient would need to follow up with neurologist Dr. Castillo within 3 weeks Orders not resulted at time of discharge: Pending orders 04/22/19 04:00 CBC no Diff [Complete Blood Count w/o Diff] [HEME] AM 0400 Magnesium AM 0400 04/23/19 04:00 Basic Metabolic Panel AM 0400 Complete Blood Count [HEME] AM 0400 Magnesium AM 0400 Estimated PT Needs at Discharge: Outpatient Therapy Estimated OT Needs at Discharge: Outpatient Therapy Date of Encounter: 04/22/19 Time of Encounter: 10:00 - Discharge Diagnosis (1) CVA (cerebral vascular accident) Priority: Primary Status: Acute Assessment and Plan: He will need to follow-up with Dr. Holland Neurologist within 3 weeks, he opted for home physical therapy option of therapy he declined on ECF for rehabilitation This was confirmed on his MRI showed Large area of acute infarct in the left temporal occipital region as well as prior history of prior strokes. 2-D echo with bubble study was unremarkable, CTA head and neck does reveal No focal significant arterial narrowing in the neck. Occluded left posterior cerebral artery just distal to its origin.Multifocal mild right CHIEF FINANCIAL OFFICER narrowing. Goal is for secondary prevention Plavix was added to his aspirin on statin, speech therapy evaluation PT/OT and likely placement to rehabilitation facility although he is reluctant. Qualifiers: CVA mechanism: occlusion Precerebral and cerebral artery: posterior cerebral artery Laterality of affected vessel: left Qualified Code(s): I63.532 - Cerebral infarction due to unspecified occlusion or stenosis of left posterior cerebral artery (2) Diabetes mellitus type 2 in obese Priority: Secondary Status: Acute Assessment and Plan: We will discharge home on low-dose metformin 500mg bid. Another modifiable risk factor hemoglobin A1c is 6.5 he denies prior diagnosis we will initiate insulin therapy (3) HTN (hypertension) Priority: Secondary Status: Acute Assessment and Plan: BP slightly elevated but at goal for recent stroke patient. Normotensive now on lisinopril, atorvastatin Qualifiers: Hypertension type: essential hypertension Qualified Code(s): I10 - Essential (primary) hypertension (4) HLD (hyperlipidemia) Priority: Secondary Status: Acute Assessment and Plan: Likely underlying etiology LDL not at goal continue high intensity statin Qualifiers: Hyperlipidemia type: mixed hyperlipidemia Qualified Code(s): E78.2 - Mixed hyperlipidemia (5) Tobacco dependence Priority: Secondary Status: Acute Assessment and Plan: Encouraged nicotine cessation, discussed at length cardiovascular complication with continued tobacco use Hospital course: Mr. Wolfe is a 63 year old male with history of prior stroke who was hospitalized for right-sided deficits workup included an MRI which revealed- Large area of acute infarct in the left temporal occipital region extending superiorly toward the parietooccipital junction and the inferolateral aspect of the splenium of the corpus callosum. Curvilinear dark gradient echo signal in the left occipital pole raises the question of petechial hemorrhage. Multiple old infarcts. He was evaluated by physical therapy and occupational therapist. Patient declined on ECF rehabilitation and opted for outpatient physical therapy as well as occupational therapy. - Time Spent with Patient Total time spent providing and/or coordinating discharge services: 45 mins - Discharge Medications Prescriptions: New Atorvastatin [Lipitor] 40 mg PO HS #30 tablet Clopidogrel [Plavix] 75 mg PO DAILY #30 tablet Lisinopril [Zestril] 10 mg PO DAILY #30 tablet Continued Tamsulosin HCl [Flomax] 0.4 mg PO BID amLODIPine [Norvasc] 5 mg PO DAILY #30 tablet Discontinued Simvastatin [Zocor] 20 mg PO HS Home Medications: Tamsulosin HCl [Flomax] 0.4 mg PO BID 04/21/19 [History] Atorvastatin [Lipitor] 40 mg PO HS #30 tablet 04/22/19 [Rx] Clopidogrel [Plavix] 75 mg PO DAILY #30 tablet 04/22/19 [Rx] Lisinopril [Zestril] 10 mg PO DAILY #30 tablet 04/22/19 [Rx] amLODIPine [Norvasc] 5 mg PO DAILY #30 tablet 04/22/19 [Rx] Allergies/Adverse Reactions: Allergy/AdvReac Type Severity Reaction Status Date / Time No Known Allergies Allergy Verified 08/26/18 10:40 Date of admission: 04/21/19 11:34 Primary care physician: Tasia Herrera CNP Consults: 04/20/19 18:00 Consult to Neurology [CONS] Stat Consulting Provider: [facility] Reason for Consult: RUE deficit. CT head non con with late subacute ischemia. Hx CVA affecting Rt side w/no chronic sequale. No hx A. Fib. Time Notified: 18:00 Call Completed: Yes 04/20/19 21:05 Consult to Physical Therapy [CONS] Routine Comment: Evaluate, develop and implement POC Reason for Consult: Stroke patient with RUE weakness Does patient have active BEDREST order?: No Is patient medically & hemodynamically stable?: Yes Patient assessed for mobility or mobilized this visit?: Yes 04/21/19 18:46 Consult to Physical Therapy [CONS] Routine Comment: Evaluate, develop and implement POC Reason for Consult: stroke Does patient have active BEDREST order?: No Is patient medically & hemodynamically stable?: Yes Patient assessed for mobility or mobilized this visit?: Yes Consult to Speech Therapy [CONS] Routine Comment: Evaluate, develop and implement POC Reason for Consult: stroke Call Completed: No Discharging clinician: Yany Blunt Anticipated date of discharge: 04/22/19 - Constitutional Vitals: Temp Pulse Resp BP Pulse Ox 98.2 F 91 17 134/85 97 04/22/19 11:34 04/22/19 11:34 04/22/19 11:34 04/22/19 11:34 04/22/19 11:34 Exam: GEN: NAD, A&O x 3, Pleasant and conversant SKIN: M[place] warm acyanotic not jaundice HEART: RRR, no murmurs LUNGS: CTA no wheeze or crackles, overall non labored ABDOMEN; Soft, non tender or distended, BS x 4 normactive EXT: No LE edema, Pedal pulses 1+, radial pulses 2+ PSYCH: Mood and affect is appropriate Neuro: Cranial nerve II-12 grossly intact as examined however with cerebellar testing dysmetria noted with the right hand - Patient Status Disposition: Home, Self-Care Condition: Good Functional capacity at discharge: uses cane/walker Overall status at discharge: patient is not back to baseline - Discharge Instructions Instructions: Diabetes Mellitus Type 2 in Adults (DC) Follow Up With: Tasia Herrera CNP [Primary Care Provider] - 04/29/19 2:00 pm Additional Instructions: Please make sure you entered to the treatment plan and to continue medications as prescribed. Make sure participate in occupational and physical therapy, and keep all outpatient follow-up appointments especially with the neurologist - Diet and Activity Activity: as per physical therapy Diet: diabetic diet, low fat, low cholesterol
--- NOTE | 2019-04-23 13:31 | Electrocardiograph Report ---
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
== END 2019-04-22 12:23 | disposition home or self-care (01) | DRG 66 ==
LOC: EMEROOARM 15:50 → 3BNU 15:50
PROVIDERS: ADMIT Student in an Organized Health Care Education/Training Program; ATTEND Pharmacist

== ENCOUNTER 2019-04-29 11:24 | Inpatient (IN) ==
--- NOTE | 2019-04-29 11:46 | Emergency Department Note ---
Disposition Clinical Impression: New onset seizure Disposition: Admitted As Inpatient Condition: Fair Time of Disposition: 15:10 Altered Mental Status HPI - General Chief Complaint: ED Altered Mental Status Stated Complaint: AMS Time Seen by Provider: 04/29/19 11:28 Source: family Limitations: altered mental status - History of Present Illness HPI Narrative: Patient is a 63-year-old male presents to the emergency room with a mental status change. The patient apparently was awake and alert this morning, patient probably was not the swing, family states they saw him about 10-15 minutes before going to the swing and he was normal. He apparently yelled something of the swing, the patient found him having seizure-like activity on the ground. The patient had seizure-like activity for about 3 minutes they state. The patient was somewhat unconscious as well. The patient does not drink alcohol according to the family. The patient just had a CVA last week according the family as well. Patient apparently has had slurred speech since becoming more arousable. They were concerned about his recent stroke and came here immediately about 45 minutes away. The patient currently denies any headache, patient denies any chest pain, palpitations, abdominal pain. The patient denies any other complaints however he is a somewhat poor historian here in the e mergency room. - Related Data Home Medications Medication Instructions Recorded Confirmed Tamsulosin HCl [Flomax] 0.4 mg PO BID 04/21/19 04/21/19 Previous Rx's Medication Instructions Recorded Atorvastatin [Lipitor] 40 mg PO HS #30 tablet 04/22/19 Clopidogrel [Plavix] 75 mg PO DAILY #30 tablet 04/22/19 Lisinopril [Zestril] 10 mg PO DAILY #30 tablet 04/22/19 amLODIPine [Norvasc] 5 mg PO DAILY #30 tablet 04/22/19 metFORMIN [Glucophage] 500 mg PO BIDWM #60 tablet 04/22/19 Allergies Allergy/AdvReac Type Severity Reaction Status Date / Time No Known Allergies Allergy Verified 08/26/18 10:40 Review of Systems: As mentioned per history of present illness and as follows. Constitutional: Negative for chills or fever HENT: Negative for sore throat. Eyes: Negative for visual disturbance Respiratory: Negative for shortness of breath. Cardiovascular: Negative for palpitations. Gastrointestinal: Negative for abdominal pain Genitourinary: Negative for dysuria Musculoskeletal: Negative for back pain. Skin: Negative for rash. Neurological: Negative for focal weakness Psychiatric/Behavioral: Negative for depression Past Medical History - Past Medical History Medical history: Reports: hyperlipidemia, hypertension, TIA Psychiatric history: Reports: no psych history - Social History Smoking Status: Current every day smoker Smokeless Tobacco Status: No Alcohol use: Reports: none Drug use: Reports: none Physical Exam PHYSICAL EXAM Constitutional: Well developed, disheveled-appearing, Non-toxic appearance. HENT: Normocephalic, Atraumatic, Bilateral external ears normal, Oropharynx moist, No oral exudates, Nose normal. Neck- Normal range of motion, No tenderness, Supple. Eyes: PERRL, EOMI, Conjunctiva normal,. Cardiovascular: Regular rate and rhythm without clicks, rubs, gallops or murmurs. Respiratory: Normal breath sounds, No respiratory distress, No wheezing, rhonchi, or crackles. GI: Soft, nontender, no evidence of guarding or peritoneal signs. Bowel sounds are active. Musculoskeletal: Good range of motion in all major joints. No tenderness to palpation or major deformities noted. + Oral equal strength noted to the upper and lower extremities Integument: Warm, Dry, No erythema, No rash. No edema. Neurologic: Alert, Normal sensory function, No focal deficits noted. Patient does have very slight slurred speech, no evidence of receptive aphasia, equal strength is noted to the upper and lower extremities, no evidence of pronator drift on examination. - General Limitations: altered mental status General appearance: alert, in no apparent distress Course Vital Signs Temperature 98.1 F 04/29/19 11:27 Pulse Rate 94 04/29/19 11:27 Respiratory Rate 18 04/29/19 11:27 Blood Pressure 114/80 04/29/19 11:27 O2 Sat by Pulse Oximetry 95 04/29/19 11:27 Temperature 98.1 F 04/29/19 11:27 Pulse Rate 73 04/29/19 15:07 Respiratory Rate 18 04/29/19 15:07 Blood Pressure 125/78 04/29/19 15:07 O2 Sat by Pulse Oximetry 96 04/29/19 15:07 Oxygen Delivery Oxygen Delivery Room Air Altered Mental Status - MDM Narrative Medical decision making narrative: EKG was done that showed evidence of sinus rhythm, do not appreciate ST elevation or depression, intervals do appear to be within normal limits. Interpreted by myself. The patient at this point in time did have a otherwise stable CT of the head. Patient did have a CVA last week. The patient appears have possibly a seizure- like activity. The patient's case was discussed with neurology. At this point in time and agree with starting the patient on Keppra. The patient was given IV Keppra here in the emergency room. Patient at this point time has no significant expressive or receptive aphasia. I do not appreciate a pronator drift or significant weakness on examination. Patient at this point in time is going to be admitted for further evaluation. Case has been discussed with the hospitalist and the patient will be admitted in stable condition. Patient is not a TPA candidate for his very mild neurological symptoms as well as the seizure at onset of symptoms. Final impression 1. New onset seizure disorder 2. Subacute CVA - Lab Data Result diagrams: 04/29/19 11:26 04/29/19 11:26 Lab Results 04/29/19 04/29/19 04/29/19 Range/Units 11:26 11:26 11:26 WBC 7.6 (4.3-11.1) K/mcL RBC 5.11 (4.19-5.50) M/mcL Hgb 15.6 (12.9-16.9) g/dL Hct 46.9 (37.5-50.1) % MCV 91.8 (83.0-100.0) fL MCH 30.5 (28.0-33.3) pg MCHC 33.3 (31.6-35.5) g/dL RDW 12.6 (11.5-14.5) % Plt Count 161 (140-400) K/mcL MPV 11.1 (9.4-12.4) fL Immature Gran % 0.4 (0-4) % Seg Neutrophils % 77.3 % Lymphocytes % 14.8 % Monocytes % 5.8 % Eosinophils % 0.9 % Basophils % 0.8 % Neutrophils # 5.9 (1.6-8.9) K/mcL Lymphocytes # 1.1 (0.6-4.6) K/mcL Monocytes # 0.4 (0.0-1.3) K/mcL Eosinophils # 0.1 (0.0-0.6) K/mcL Basophils # 0.1 (0.0-0.2) K/mcL PT 12.4 H (9.4-12.1) Seconds INR 1.1 APTT 27.9 (26.0-36.0) Seconds Sodium 138 (136-145) mEq/L Potassium 3.8 (3.5-5.1) mEq/L Chloride 104 (98-107) mEq/L Carbon Dioxide 20 L (23-29) mEq/L BUN 15 (8-23) mg/dL Creatinine 1.04 (0.70-1.30) mg/dL Est GFR ( Amer) > 60 (> 60) Est GFR (Non-Af Amer) > 60 (> 60) BUN/Creatinine Ratio 14 (6-26) Glucose 204 H (70-105) mg/dL Calculated Osmolality 293 (280-300) Calcium 9.6 (8.6-10.3) mg/dL Total Bilirubin 0.6 (0.3-1.0) mg/dL Direct Bilirubin 0.2 (0.0-0.2) mg/dL Indirect Bilirubin 0.4 (0.0-1.2) mg/dL AST 11 L (13-39) Units/L ALT 13 (7-52) Units/L Alkaline Phosphatase 72 (34-104) Units/L Troponin I < 0.03 (< 0.04) ng/mL Serum Total Protein 6.9 (6.4-8.9) g/dL Albumin 4.1 (3.5-5.7) g/dL Globulin 2.8 (2.4-3.5) g/dL Albumin/Globulin Ratio 1.5 (1.1-2.2) Urine Color (Yellow) Urine Clarity (Clear) Urine pH (5.0-8.0) pH Units Ur Specific [place] (1.010-1.025) Urine Protein (Neg-Trace) mg/dL Urine Glucose (UA) (Normal) mg/dL Urine Ketones (Negative) mg/dL Urine Blood (Negative) Urine Nitrite (Negative) Urine Bilirubin (Negative) Urine Urobilinogen (Normal) mg/dL Ur Leukocyte Esterase (Negative) Urine Microscopic RBC (0-3) per hpf Urine Microscopic WBC (0-3) per hpf Ur Squamous Epith Cells (None-Few) per lpf Urine Bacteria (None-Few) per hpf Hyaline Casts (None-Few) per lpf Ur Culture Indicated? (NO) Urine Opiates Screen (Ekzbsf=083) ng/mL Ur Buprenorphine Scrn (Cutoff=5) ng/mL Ur Barbiturates Screen (Zllpxb=672) ng/mL Ur Phencyclidine Scrn (Cutoff=25) ng/mL Ur Amphetamines Screen (Kjjdfq=1887) ng/mL U Benzodiazepines Scrn (Ujslmj=664) ng/mL Urine Cocaine Screen (Cutoff= 300) ng/mL U Marijuana (THC) Screen (Cutoff = 50) ng/mL Ur Drug Screen Interp Ethyl Alcohol < 10 (Less than 10) mg/dL 04/29/19 04/29/19 Range/Units 13:00 13:00 WBC (4.3-11.1) K/mcL RBC (4.19-5.50) M/mcL Hgb (12.9-16.9) g/dL Hct (37.5-50.1) % MCV (83.0-100.0) fL MCH (28.0-33.3) pg MCHC (31.6-35.5) g/dL RDW (11.5-14.5) % Plt Count (140-400) K/mcL MPV (9.4-12.4) fL Immature Gran % (0-4) % Seg Neutrophils % % Lymphocytes % % Monocytes % % Eosinophils % % Basophils % % Neutrophils # (1.6-8.9) K/mcL Lymphocytes # (0.6-4.6) K/mcL Monocytes # (0.0-1.3) K/mcL Eosinophils # (0.0-0.6) K/mcL Basophils # (0.0-0.2) K/mcL PT (9.4-12.1) Seconds INR APTT (26.0-36.0) Seconds Sodium (136-145) mEq/L Potassium (3.5-5.1) mEq/L Chloride (98-107) mEq/L Carbon Dioxide (23-29) mEq/L BUN (8-23) mg/dL Creatinine (0.70-1.30) mg/dL Est GFR ( Amer) (> 60) Est GFR (Non-Af Amer) (> 60) BUN/Creatinine Ratio (6-26) Glucose (70-105) mg/dL Calculated Osmolality (280-300) Calcium (8.6-10.3) mg/dL Total Bilirubin (0.3-1.0) mg/dL Direct Bilirubin (0.0-0.2) mg/dL Indirect Bilirubin (0.0-1.2) mg/dL AST (13-39) Units/L ALT (7-52) Units/L Alkaline Phosphatase (34-104) Units/L Troponin I (< 0.04) ng/mL Serum Total Protein (6.4-8.9) g/dL Albumin (3.5-5.7) g/dL Globulin (2.4-3.5) g/dL Albumin/Globulin Ratio (1.1-2.2) Urine Color Yellow (Yellow) Urine Clarity Clear (Clear) Urine pH 6.0 (5.0-8.0) pH Units Ur Specific [place] 1.011 (1.010-1.025) Urine Protein Negative (Neg-Trace) mg/dL Urine Glucose (UA) Normal (Normal) mg/dL Urine Ketones Negative (Negative) mg/dL Urine Blood Negative (Negative) Urine Nitrite Negative (Negative) Urine Bilirubin Negative (Negative) Urine Urobilinogen Normal (Normal) mg/dL Ur Leukocyte Esterase Trace H (Negative) Urine Microscopic RBC 0-3 (0-3) per hpf Urine Microscopic WBC 0-3 (0-3) per hpf Ur Squamous Epith Cells Moderate H (None-Few) per lpf Urine Bacteria None Seen (None-Few) per hpf Hyaline Casts None Seen (None-Few) per lpf Ur Culture Indicated? YES A (NO) Urine Opiates Screen Negative (Tdvmjo=257) ng/mL Ur Buprenorphine Scrn Negative (Cutoff=5) ng/mL Ur Barbiturates Screen Negative (Bhnypx=348) ng/mL Ur Phencyclidine Scrn Negative (Cutoff=25) ng/mL Ur Amphetamines Screen Negative (Ryxjtj=5882) ng/mL U Benzodiazepines Scrn Negative (Bzxxts=401) ng/mL Urine Cocaine Screen Negative (Cutoff= 300) ng/mL U Marijuana (THC) Screen Negative (Cutoff = 50) ng/mL Ur Drug Screen Interp See Below Ethyl Alcohol (Less than 10) mg/dL TPA Checklist - LKW: 3-4.5 hrs Add. Warnings/Precautions Patient/family understanding: The patient/family members have been counseled and understood the risk, benefit, and alternatives of treatment.
[2019-04-29 11:49] LABS: Basophils # 0.1 K/mcL (0.0-0.2); Basophils % 0.8 %; Eosinophils # 0.1 K/mcL (0.0-0.6); Eosinophils % 0.9 %; Hematocrit 46.9 % (37.5-50.1); Hemoglobin 15.6 g/dL (12.9-16.9); Immature Granulocytes % 0.4 % (0-4); Lymphocytes # 1.1 K/mcL (0.6-4.6); Lymphocytes % 14.8 %; Mean Corpuscular HGB Conc 33.3 g/dL (31.6-35.5); Mean Corpuscular Hemoglobin 30.5 pg (28.0-33.3); Mean Corpuscular Volume 91.8 fL (83.0-100.0); Mean Platelet Volume 11.1 fL (9.4-12.4); Monocytes # 0.4 K/mcL (0.0-1.3); Monocytes % 5.8 %; Neutrophils # 5.9 K/mcL (1.6-8.9); Platelet Count 161 K/mcL (140-400); Red Blood Count 5.11 M/mcL (4.19-5.50); Red Cell Distribution Width 12.6 % (11.5-14.5); Segmented Neutrophils % 77.3 %; White Blood Count 7.6 K/mcL (4.3-11.1)
[2019-04-29 12:04] LABS: Alanine Aminotransferase 13 Units/L (7-52); Albumin 4.1 g/dL (3.5-5.7); Albumin/Globulin Ratio 1.5 (1.1-2.2); Alkaline Phosphatase 72 Units/L (34-104); Aspartate Amino Transferase 11 Units/L (13-39); BUN/Creatinine Ratio 14 (6-26); Bilirubin,Direct 0.2 mg/dL (0.0-0.2); Bilirubin,Indirect 0.4 mg/dL (0.0-1.2); Bilirubin,Total 0.6 mg/dL (0.3-1.0); Blood Urea Nitrogen 15 mg/dL (8-23); Calcium 9.6 mg/dL (8.6-10.3); Carbon Dioxide 20 mEq/L (23-29); Chloride 104 mEq/L (98-107); Ethanol < 10 mg/dL (Less than 10); Globulin 2.8 g/dL (2.4-3.5); Glucose 204 mg/dL (70-105); Osmolality,Calculated 293 (280-300); Potassium 3.8 mEq/L (3.5-5.1); Sodium 138 mEq/L (136-145); Total Protein 6.9 g/dL (6.4-8.9); Troponin I < 0.03 ng/mL (< 0.04); eGFR For African Americans > 60 (> 60); eGFR For Non-African Americans > 60 (> 60)
[2019-04-29 12:06] LABS: INR 1.1; Prothrombin Time 12.4 Seconds (9.4-12.1)
[2019-04-29 12:09] LABS: Activated Partial Thrombo Time 27.9 Seconds (26.0-36.0)
[2019-04-29] MEDS ORDERED: levETIRAcetam 1,000 MG in 0.9 % Sodium Chloride 100 ML IVPB ONE (13:25)
[2019-04-29 13:28] LABS: Bilirubin,Urine Negative (Negative); Blood,Urine Negative (Negative); Clarity,Urine Clear (Clear); Color,Urine Yellow (Yellow); Glucose,Urine (UA) Normal (Normal); Ketones,Urine Negative (Negative); Leukocyte Esterase,Urine Trace (Negative); Nitrite,Urine Negative (Negative); Protein,Urine Negative (Neg-Trace); Specific Gravity,Urine 1.011 (1.010-1.025); Urobilinogen,Urine Normal (Normal)
[2019-04-29 13:30] LABS: Bacteria,Urine None Seen per hpf (None-Few); Hyaline Casts,Urine None Seen per lpf (None-Few); RBC,Urine 0-3 per hpf (0-3); Squamous Epithelial Cell,Urine Moderate per lpf (None-Few); WBC,Urine 0-3 per hpf (0-3)
[2019-04-29 13:37] LABS: Amphetamine Screen,Urine Negative ng/mL (Cutoff=1000); Barbiturate Screen,Urine Negative ng/mL (Cutoff=200); Benzodiazepines Screen,Urine Negative ng/mL (Cutoff=200); Cannabinoid Screen,Urine Negative ng/mL (Cutoff = 50); Cocaine Screen,Urine Negative ng/mL (Cutoff= 300); Opiate Screen,Urine Negative ng/mL (Cutoff=300); Phencyclidine Screen,Urine Negative ng/mL (Cutoff=25)
--- NOTE | 2019-04-29 14:01 | Neurology - Consult Note ---
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 Holland on d/c Will get non-con MRI brain to evaluate for acute ischemia CT head in ED unremarkable Begin NIHSS and neurological assessments per protocol Recent w/u as follows: CT/CT angio neck IMPRESSION: No focal significant arterial narrowing in the neck. 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 Multifocal mild right [employer] INSPECTOR narrowing TTE Impressions: LVEF 55-60%. Mild left ventricular diastolic dysfunction. Normal right ventricular structure and function. No significant valvular dysfunction. No evidence of pulmonary hypertension. Non-diagnostic of PFO with agitated saline contrast MR/MR head/brain wo con IMPRESSION: Large area of acute infarct in the left temporal occipital region extending superiorly toward the parietooccipital junction and the inferolateral aspect of the splenium of the corpus callosum. Curvilinear dark gradient echo signal in the left occipital pole raises the question of petechial hemorrhage. Multiple old infarcts. Qualifiers: CVA mechanism: occlusion Precerebral and cerebral artery: posterior cerebral artery Laterality of affected vessel: left Qualified Code(s): I63.532 - Cerebral infarction due to unspecified occlusion or stenosis of left posterior cerebral artery History of Present Illness Chief complaint: seizures and concers for TIA HPI: Mr. Wolfe is a 63 year old male with a PMH of smoking history (current daily smoker), HLD, HTN, TIA and recent CVA in the left occipital temporal lobe with residual right-sided hemianopsia. He presents to the ED with family. It is reported that he was outside on a swing and suddenly had a change in level of consciousness. They found him on the ground having seizure-like activity reporting "jerking of his entire body for approximately 2-3 minutes ". After t his event subsided the patient was confused and lethargic. The denying any prompting events, aggravating or alleviating factors. Further, they deny any visual disturbances, gait disturbances, dysphagia, dysarthria, paresthesias, chest pain, shortness of breath, palpitations, unilateral weakness or paresthesias. Time of my assessment this afternoon is alert and oriented 3 has not had any return of strokelike activity since admission. Eye exam does reveal a new left upper arm weakness which is concerning given his recent CVA. A CT of the hips completed the ED and found to be negative for acute cranial abnormality. CBC and chemistry was within expected range as were vital signs. Urine tox is negative. Urinalysis mildly suspicious for UTI. He is being admitted for CVA and seizure rule out. Past Med Surg Social Fam HX - Past Medical History Medical history: hyperlipidemia, hypertension, TIA Psychiatric history: no psych history - Social History Smoking Status: Current every day smoker Smokeless Tobacco Status: No Alcohol use: none Drug use: none - Family History Mother Hx Family Cardiac Disorders: Yes Medications and Allergies Tamsulosin HCl [Flomax] 0.4 mg PO BID 04/21/19 [History] Atorvastatin [Lipitor] 40 mg PO HS #30 tablet 04/22/19 [Rx] Clopidogrel [Plavix] 75 mg PO DAILY #30 tablet 04/22/19 [Rx] Lisinopril [Zestril] 10 mg PO DAILY #30 tablet 04/22/19 [Rx] amLODIPine [Norvasc] 5 mg PO DAILY #30 tablet 04/22/19 [Rx] metFORMIN [Glucophage] 500 mg PO BIDWM #60 tablet 04/22/19 [Rx] Allergy/AdvReac Type Severity Reaction Status Date / Time No Known Allergies Allergy Verified 08/26/18 10:40 All Systems: The remainder of the systems were reviewed and are negative Review of Systems: REVIEW OF SYSTEMS NEUROLOGIC: Negative for any facial asymmetry, dysphagia, dysarthria, he miparesis, hemisensory deficits, vertigo, ataxia, numbness, unilateral weakness or numbness/tingling POSITIVE: Right hemianopsia since acute CVA last week. Today he was witnessed to have seizure-like activity with family reporting "jerking "I was entire body for approximately 3 minutes with confusion thereafter. HEENT: Negative for any head trauma, neck trauma CARDIAC: Negative for any chest pain, dyspnea, peripheral edema or palpitations Physical Examination - Vital Signs Vital Signs: Initial Vital Signs Temp Pulse Resp BP Pulse Ox 98.1 F 94 18 114/80 95 04/29/19 11:27 04/29/19 11:27 04/29/19 11:27 04/29/19 11:04/29/19 11:27 - Exam Exam: Examination: General Examination: *CONSTITUTIONAL: Alert and oriented x3, no acute distress *GENERAL APPEARANCE OF PATIENT appears healthy and well groomed *EYES: pupils equal, round, reactive to light and accommodation, conjunctiva clear without masses or ulcerations, fundi normal. *CARDIOVASCULAR: RRR, S1, S2, no mumurs, rubs, or gallops, no peripheral edema, distal temperature normal, dorsalis pedis pulses normal. Refer to vital signs * MUSCULOSKELETAL: *GAIT AND STATION: normal, with normal Romberg testing, no abnormalities such as broad base gait or spasticity *ASSESSMENT OF MUSCLE STRENGTH IN THE UPPER AND LOWER EXTREMITIES right deltoid, bicep, tricep, belt loop maker strength 5/5, bilateral hip flexors ,anterior tibialis, dorsoflexion of the foot 5/5. Left bicep, tricep and deltoid weakness 4/5 with diminished left-sided belt loop maker strength 4/5. *MUSCLE TONE IN THE UPPER AND LOWER EXTREMITIES normal. No abnormal movements, fasciculations or atrophy identified. Neurological: *ORIENTATION to person, situation, time and place *LANGUAGE AND FUNCTION no significant aphasia or dysarthia was noted. *ATTENTION AND CONCENTRATION are normal *LANGUAGE FUNCTION no significant aphasia or dysarthia was noted. *FUND OF KNOWLEDGE aware of current events, past history, vocabulary *MENTAL attention span and concentration normal. *CN II optic fundi were normal, no papilledema noted. *CN III,IV, PERRLA extraocular eye movements were full, no nystagmus and no ptosis noted. *CN V shows normal sensation and jaw opens symmetrically. *CN VII shows normal facial movement symmetrically, upper and lower bilaterally. *CN VIII shows no significant hearing loss on exam *CN IX-X palate elevated symmetrically *CN XI normal strength in the sternocleidomastoid muscles, symmetrical shoulder shrugging. *CN XII tongue protruded in the midline, with normal strength and movement. *SENSORY EXAMINATION light touch intact *REFLEXES: deep tendon reflexes were absent diffusely, no pathological reflexes were noted. *CEREBELLAR TESTING normal finger to nose *PAIN LEVEL 0/10 Results - Laboratory Findings CBC and BMP: 04/29/19 11:26 04/29/19 11:26 Abnormal lab findings: Abnormal lab results PT 12.4 Seconds (9.4-12.1) H 04/29/19 11:26 Carbon Dioxide 20 mEq/L (23-29) L 04/29/19 11:26 Glucose 204 mg/dL (70-105) H 04/29/19 11:26 AST 11 Units/L (13-39) L 04/29/19 11:26 Ur Leukocyte Esterase Trace (Negative) H 04/29/19 13:00 Ur Squamous Epith Cells Moderate per lpf (None-Few) H 04/29/19 13:00 Ur Culture Indicated? YES (NO) A 04/29/19 13:00 - Diagnostic Findings Additional findings: CT/CT head/brain wo con IMPRESSION: No acute intracranial abnormality. Stable subacute infarct involving the left temporal occipital lobe. Bilateral old basal ganglia lacunes not significantly changed. Mild chronic microvascular disease within the periventricular white matter. Consult Discharge Plan - Plan Referrals: Tasia Herrera, DIGITAL SALES ASSISTANT [Primary Care Provider] - <Quintin Vazquez - Last Filed: 04/29/19 17:30> Date of Encounter: 04/29/19 Assessment and Plan (1) CVA (cerebral vascular accident) Current Visit: No Status: Chronic I have personally performed a [id number] assessment of the patient and have reviewed the PA/PROFESSOR OF MATHEMATICS note. My impressions are as follows: I agree with the assessment and plan as stated above. A repeat MRI scan of the brain reveals the more clearly defined acute cerebral infarct, however there is no evidence of expansion of the infarct territory. Qualifiers: CVA mechanism: occlusion Precerebral and cerebral artery: posterior cerebra l artery Laterality of affected vessel: left Qualified Code(s): I63.532 - Cerebral infarction due to unspecified occlusion or stenosis of left posterior cerebral artery (2) Seizures Current Visit: Yes Status: Acute I have personally performed a [id number] assessment of the patient and have reviewed the PA/PROFESSOR OF MATHEMATICS note. My impressions are as follows: I agree with the assessment and plan as stated above by the DIGITAL SALES ASSISTANT. Repeat EEG does reveal left hemispheric slowing, however I did not see evidence of seizure activity. However based on the clinical description provided by the family it certainly seems to have been consistent with a generalized tonic-clonic seizure. I agree with Keppra 500 mg twice a day. I will sign out to Dr. Stone/Tay. History of Present Illness HPI: The chart was reviewed, the patient was seen and examined independently. The case was discussed with the DIGITAL SALES ASSISTANT. I agree with his interpretation of the history of present illness as stated above. All Systems: The remainder of the systems were reviewed and are negative Review of Systems: The balance of the systems review is negative. Physical Examination - Vital Signs Vital Signs: Initial Vital Signs Temp Pulse Resp BP Pulse Ox 98.1 F 94 18 114/80 95 04/29/19 11:27 04/29/19 11:27 04/29/19 11:27 04/29/19 11:27 04/29/19 11:27 - Exam Exam: I have personally performed a [id number] assessment of the patient and have reviewed the PA/PROFESSOR OF MATHEMATICS note. My impressions are as follows: I did perform a complete neurologic examination. I agree with the documentation of the n eurologic exam as outlined above. Results - Laboratory Findings CBC and BMP: 04/29/19 11:26 04/29/19 11:26 Abnormal lab findings: Abnormal lab results PT 12.4 Seconds (9.4-12.1) H 04/29/19 11:26 Carbon Dioxide 20 mEq/L (23-29) L 04/29/19 11:26 Glucose 204 mg/dL (70-105) H 04/29/19 11:26 AST 11 Units/L (13-39) L 04/29/19 11:26 Ur Leukocyte Esterase Trace (Negative) H 04/29/19 13:00 Ur Squamous Epith Cells Moderate per lpf (None-Few) H 04/29/19 13:00 Ur Culture Indicated? YES (NO) A 04/29/19 13:00
[2019-04-29] MEDS ORDERED: Dextrose Gel 15 GM/37.5 ML TUBE PO PRN ×2 (15:10)
[2019-04-29] MEDS ORDERED: D5% in Water 1,000 ML IVC PRN (15:10)
[2019-04-29] MEDS ORDERED: *HR* Dextrose 50 % in Water (Syg) 50 ML SYRINGE IVP PRN (15:10)
[2019-04-29] MEDS ORDERED: Mag Hydrox/Al Hydrox/Simeth 30 ML UDC PO PRN (15:11)
[2019-04-29] MEDS ORDERED: Ondansetron 4 MG/2 ML VIAL IVP PRN (15:11)
[2019-04-29] MEDS ORDERED: MOM Conc 10 ML UD.LIQ PO PRN (15:11)
[2019-04-29] MEDS ORDERED: Naloxone 0.4 MG/ML INJ IVP PRN (15:11)
[2019-04-29] MEDS ORDERED: *HR* Promethazine 25 MG/ML VIAL IVP PRN (15:11)
--- NOTE | 2019-04-29 15:16 | Internal Med History&Physical ---
Date of Encounter: 04/29/19 Time of Encounter: 15:14 Internal Medicine - H&P: HPI Admitted From: Home Plans for Post Hospital Care: Home History of present illness: Mr. Wolfe is a 63 year old male presents to the emergency room with a mental status change. The patient apparently was awake and alert this morning, family states they saw him about 10-15 minutes before going to the swing and he was normal. He apparently yelled something of the swing, family found him having seizure-like activity on the ground. The patient had seizure-like activity for about 3 minutes they state. The patient was unconscious as well. The patient does not drink alcohol according to the family. The patient just had a CVA last week according the family as well. Patient apparently has had slurred speech since becoming more arousable. They were concerned about his recent stroke and came here immediately about 45 minutes away. The patient currently denies any headache, patient denies any chest pain, palpitations, abdominal pain. The patient denies any other complaints however he is a somewhat poor historian here in the emergency room. In the ED, patient vital signs were stable, CT of her head has no acute changes besides subacute left occipital/temporal CVA. Neurology was consulted, patient received IV Keppra. He will be admitted for further evaluation. CODE STATUS will be full code. Past Med Surg Social Fam HX - Past Medical History Medical history: hyperlipidemia, hypertension, TIA Psychiatric history: no psych history - Social History Smoking Status: Current every day smoker Smokeless Tobacco Status: No Alcohol use: none Drug use: none Internal Medicine - H&P: Meds Tamsulosin HCl [Flomax] 0.4 mg PO BID 04/21/19 [History] Atorvastatin [Lipitor] 40 mg PO HS #30 tablet 04/22/19 [Rx] Clopidogrel [Plavix] 75 mg PO DAILY #30 tablet 04/22/19 [Rx] Lisinopril [Zestril] 10 mg PO DAILY #30 tablet 04/22/19 [Rx] amLODIPine [Norvasc] 5 mg PO DAILY #30 tablet 04/22/19 [Rx] metFORMIN [Glucophage] 500 mg PO BIDWM #60 tablet 04/22/19 [Rx] Allergy/AdvReac Type Severity Reaction Status Date / Time No Known Allergies Allergy Verified 08/26/18 10:40 All Systems PM: A 10-system review of systems was performed and is negative for pertinent findings except as documented above in the HPI. Review of systems: REVIEW OF SYSTEMS: CONSTITUTIONAL: No weight loss, fever, chills, weakness or fatigue. HEENT: Eyes: No visual loss, blurred vision, double vision or yellow sclerae. Ears, Nose, Throat: No hearing loss, sneezing, congestion, runny nose or sore throat. SKIN: No rash or itching. CARDIOVASCULAR: No chest pain, chest pressure or chest discomfort. No palpitations or edema. RESPIRATORY: No shortness of breath, cough or sputum. GASTROINTESTINAL: No anorexia, nausea, vomiting or diarrhea. No abdominal pain or blood. GENITOURINARY: No dysuria, urgency, or frequency. NEUROLOGICAL: No headache, dizziness, syncope, paralysis, ataxia, numbness or tingling in the extremities. No change in bowel or bladder control. MUSCULOSKELETAL: No muscle, back pain, joint pain or stiffness. HEMATOLOGIC: No anemia, bleeding or bruising. LYMPHATICS: No enlarged nodes. No history of splenectomy. PSYCHIATRIC: No history of depression or anxiety. ENDOCRINOLOGIC: No reports of sweating, cold or heat intolerance. No polyuria or polydipsia. - Constitutional Vitals: Temp Pulse Resp BP Pulse Ox 98.1 F 73 18 125/78 96 04/29/19 11:27 04/29/19 15:07 04/29/19 15:07 04/29/19 15:07 04/29/19 15:07 General appearance: Present: A&O X 3 Exam: PHYSICAL EXAMINATION: GENERAL APPEARANCE: The patient is alert, oriented and in no acute distress. HEENT: Head is normocephalic. The sinuses are nontender. Pupils are equal and reactive. The nares are patent. Oropharynx clear without lesions. NECK: Supple without lymphadenopathy. HEART: Regular rate and rhythm. LUNGS: No crackles or wheezes are heard. ABDOMEN: Soft, nontender, nondistended with good bowel sounds heard. Inguinal area is normal. EXTREMITIES: Without cyanosis, clubbing or edema. NEUROLOGICAL: right side weakness. SKIN: Warm and dry without any rash. Internal Med - H&P Results - Labs CBC & Chem 7: 04/29/19 11:26 04/29/19 11:26 Labs: Short CBC 04/29/19 Range/Units 11:26 WBC 7.6 (4.3-11.1) K/mcL Hgb 15.6 (12.9-16.9) g/dL Hct 46.9 (37.5-50.1) % Plt Count 161 (140-400) K/mcL Neutrophils # 5.9 (1.6-8.9) K/mcL BMP 04/29/19 11:26 Sodium 138 Potassium 3.8 Chloride 104 Carbon Dioxide 20 L BUN 15 Creatinine 1.04 Glucose 204 H Calcium 9.6 Cardiac Enzymes 04/29/19 Range/Units 11:26 Troponin I < 0.03 (< 0.04) ng/mL Liver Function 04/29/19 Range/Units 11:26 Total Bilirubin 0.6 (0.3-1.0) mg/dL Direct Bilirubin 0.2 (0.0-0.2) mg/dL AST 11 L (13-39) Units/L ALT 13 (7-52) Units/L Alkaline Phosphatase 72 (34-104) Units/L Albumin 4.1 (3.5-5.7) g/dL Urine 04/29/19 Range/Units 13:00 Urine Color Yellow (Yellow) Urine Clarity Clear (Clear) Urine pH 6.0 (5.0-8.0) pH Units Ur Specific Davin 1.011 (1.010-1.025) Urine Protein Negative (Neg-Trace) mg/dL Urine Glucose (UA) Normal (Normal) mg/dL - Impressions ITS Impressions Chest X-Ray 04/29/19 11:42 IMPRESSION: 1. Cardiomegaly with mild vascular congestion. D/ / Jackson Dailey MD / Jackson Dailey MD Interpreting Provider: Jackson Dailey MD Head CT 04/29/19 11:42 IMPRESSION: No acute intracranial abnormality. Stable subacute infarct involving the left temporal occipital lobe. Bilateral old basal ganglia lacunes not significantly changed. Mild chronic microvascular disease within the periventricular white matter. D/ / 04/29/2019 12:54:47 Baltazar Ruiz MD / [email or web address] Interpreting Provider: Baltazar Ruiz MD - Assessment and Plan (1) New onset seizure Current Visit: Yes Status: Acute Assessment and plan: Patient was witnessed by likely seizure-like activity with loss of consciousness. He also was weightiness unlikely postictal confusion and weakness. He developed left-sided occipital and temporal CVA recently with right hemianopsia as a residual. He currently takes Plavix. CT of her head has no acute bleeding. Neurology was consulted, patient was started on IV Keppra. Appreciate neuro help. (2) CVA (cerebral vascular accident) Current Visit: No Status: Chronic Assessment and plan: Continue Plavix. Neuro following. Qualifiers: CVA mechanism: occlusion Precerebral and cerebral artery: posterior cerebral artery Laterality of affected vessel: left Qualified Code(s): I 63.532 - Cerebral infarction due to unspecified occlusion or stenosis of left posterior cerebral artery (3) HTN (hypertension) Current Visit: No Status: Acute Assessment and plan: PE controlled, continue home medications. Qualifiers: Hypertension type: essential hypertension Qualified Code(s): I10 - Essential (primary) hypertension (4) HLD (hyperlipidemia) Current Visit: No Status: Acute Assessment and plan: Continue home medications. Qualifiers: Hyperlipidemia type: mixed hyperlipidemia Qualified Code(s): E78.2 - Mixed hyperlipidemia (5) Tobacco dependence Current Visit: No Status: Acute Assessment and plan: Smoking cessation discussed with patient. (6) Diabetes mellitus type 2 in obese Current Visit: No Status: Chronic Assessment and plan: Started on insulin sliding scale, hold home oral agent. (7) DVT prophylaxis Current Visit: Yes Status: Acute Assessment and plan: Heparin subcutaneous. - Time Spent With Patient Total time spent is greater than 50% in coordination of care (as documented) at patient's floor/unit and/or counseling patient: Greater than 35 minutes
--- NOTE | 2019-04-29 16:54 | Electrocardiograph Report ---
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
[2019-04-29] MEDS: Insulin LISPRO 300 UNITS/3 ML VIAL SQ SCH ×2 (17:16→20:39)
--- NOTE | 2019-04-29 17:24 | EEG/EMG/Oth Biometrics Report ---
EEG Procedure Report Date of procedure: 04/29/19 EEG Procedure: Routine EEG Procedure Note: This is a report of a 21 channel bipolar and referential montage EEG. A posterior dominant rhythm of 7 Hz moderate voltage theta frequencies identified in the right occipital head region. However the left occipital posterior rhythm is poorly organized and poorly sustained reflective of mixed theta and delta frequencies. This rhythm is not reactive to eye opening. Hyperventilation is not performed in recording. Comparatively the rhythms of the left cerebral hemisphere slower and more poorly organized and on the right. Periods of drowsiness and stage II sleep identified as reference by dropout of the posterior dominant rhythm and emergence of vertex activity, K complexes and sleep spindles. Photic stimulation performed and does not produce a driving response. EKG rhythm strip reveals normal sinus rhythm at 78 bpm. Impressions: This EEG recording is abnormal and finds following 1. Left hemispheric abnormality. Etiologies of this might include vascular, inflammatory postictal or degenerative. 2. Mild generalized encephalopathy. Etiologies to consider might include toxic, metabolic, postictal or degenerative. 3. No evidence of epileptiform activity identified during the study. Comment: This EEG does not rule out the possibility of seizures or epilepsy. If the clinical suspicion for seizure activity is high, serial EEGs or perhaps a prolonged recording may increase the yield. Please correlate clinically.
[2019-04-29] MEDS: levETIRAcetam 250 MG TABLET PO SCH (18:03)
[2019-04-29] MEDS: *HR* Heparin 5,000 UNIT/ML VIAL SQ SCH (18:03)
[2019-04-30] MEDS: traMADol 50 MG TABLET PO PRN ×3 (00:59→14:42)
[2019-04-30] MEDS: levETIRAcetam 250 MG TABLET PO SCH ×2 (05:22→17:03)
[2019-04-30] MEDS: *HR* Heparin 5,000 UNIT/ML VIAL SQ SCH ×2 (05:23→17:03)
[2019-04-30] MEDS: Insulin LISPRO 300 UNITS/3 ML VIAL SQ SCH ×4 (08:02→20:54)
[2019-04-30] MEDS: amLODIPine 5 MG TABLET PO SCH (08:35)
--- NOTE | 2019-04-30 09:09 | Internal Med Progress Note ---
Hospitalist Progress Note - Encounter Date of Encounter: 04/30/19 Time of Encounter: 09:07 - Subjective Interval History: Mr. Wolfe is a 63 year old male presents to the emergency room with a mental status change. The patient apparently was awake and alert this morning, family states they saw him about 10-15 minutes before going to the swing and he was normal. He apparently yelled something of the swing, family found him having seizure-like activity on the ground. The patient had seizure-like activity for about 3 minutes. The patient was unconscious as well. The patient does not drink alcohol according to the family. The patient just had a CVA last week according the family. Patient apparently has had slurred speech since becoming more arousable. They were concerned about his recent stroke and came here immediately about 45 minutes away. In the ED, CT of her head has no acute changes besides subacute left occipital/temporal CVA. Neurology was consulted, patient received Keppra. MRI of brain showed stable suspected left hospital p etechial hemorrhage in addition to a subacute CVA involving left posterior cerebral artery territory. EEG was performed which did not show epileptic waveform. Patient seen and examined in the room. He seems alert and oriented this morning. He is kind of hard of hearing, reported left shoulder pain and stated that he landed on the left side when he had a seizure yesterday. Overnight, patient had no witnessed seizure activity. - Exam Vitals: Temp Pulse Resp BP Pulse Ox 98.0 F 81 14 147/86 95 04/30/19 06:46 04/30/19 06:46 04/30/19 06:46 04/30/19 06:46 04/30/19 06:46 Exam: PHYSICAL EXAMINATION: GENERAL APPEARANCE: The patient is alert, oriented and in no acute distress. HEENT: Head is normocephalic. The sinuses are nontender. Pupils are equal and reactive. The nares are patent. Oropharynx clear without lesions. NECK: Supple without lymphadenopathy. HEART: Regular rate and rhythm. LUNGS: No crackles or wheezes are heard. ABDOMEN: Soft, nontender, nondistended with good bowel sounds heard. Inguinal area is normal. EXTREMITIES: Without cyanosis, clubbing or edema. NEUROLOGICAL: right side weakness. SKIN: Warm and dry without any rash. - Assessment and Plan (1) New onset seizure Current Visit: Yes Status: Acute Assessment and Plan: 04/29 Patient was witnessed by likely seizure-like activity with loss of consciousness. He also was weightiness unlikely postictal confusion and weakness. He developed left-sided occipital and temporal CVA recently with right marcelo anopsia as a residual. He currently takes Plavix. CT of her head has no acute bleeding. Neurology was consulted, patient was started on IV Keppra. Appreciate neuro help. 04/30 EEG was performed and reported with abnormal findings but has no epileptic waveform captured. Patient was placed on Keppra oral. Neuro following. (2) CVA (cerebral vascular accident) Current Visit: No Status: Chronic Assessment and Plan: Continue Plavix. Neuro following. (3) HTN (hypertension) Current Visit: No Status: Acute Assessment and Plan: BP controlled, continue home medications. (4) HLD (hyperlipidemia) Current Visit: No Status: Acute Assessment and Plan: Continue home medications. (5) Tobacco dependence Current Visit: No Status: Acute Assessment and Plan: Smoking cessation discussed with patient. (6) Diabetes mellitus type 2 in obese Current Visit: No Status: Chronic Assessment and Plan: Started on insulin sliding scale, hold home oral agent. BG well controlled. (7) DVT prophylaxis Current Visit: Yes Status: Acute Assessment and Plan: Heparin subcutaneous. - Time Spent with Patient Total time spent is greater than 50% in coordination of care (as documented) at patient's floor/unit and/or counseling patient: Greater than 35 minutes Plan of Care Discussed with: patient Internal Medicine: Result - Labs CBC & Chem 7: 04/29/19 11:26 04/29/19 11:26 Labs: Short CBC 04/29/19 Range/Units 11:26 WBC 7.6 (4.3-11.1) K/mcL Hgb 15.6 (12.9-16.9) g/dL Hct 46.9 (37.5-50.1) % Plt Count 161 (140-400) K/mcL Neutrophils # 5.9 (1.6-8.9) K/mcL BMP 04/29/19 11:26 Sodium 138 Potassium 3.8 Chloride 104 Carbon Dioxide 20 L BUN 15 Creatinine 1.04 Glucose 204 H Calcium 9.6 Cardiac Enzymes 04/29/19 Range/Units 11:26 Troponin I < 0.03 (< 0.04) ng/mL Liver Function 04/29/19 Range/Units 11:26 Total Bilirubin 0.6 (0.3-1.0) mg/dL Direct Bilirubin 0.2 (0.0-0.2) mg/dL AST 11 L (13-39) Units/L ALT 13 (7-52) Units/L Alkaline Phosphatase 72 (34-104) Units/L Albumin 4.1 (3.5-5.7) g/dL Urine 04/29/19 Range/Units 13:00 Urine Color Yellow (Yellow) Urine Clarity Clear (Clear) Urine pH 6.0 (5.0-8.0) pH Units Ur Specific [place] 1.011 (1.010-1.025) Urine Protein Negative (Neg-Trace) mg/dL Urine Glucose (UA) Normal (Normal) mg/dL - ABG Interpretation ABG results: PT/INR, D-dimer PT 12.4 Seconds (9.4-12.1) H 04/29/19 11:26 - Impressions Impressions Chest X-Ray 04/29/19 11:42 IMPRESSION: 1. Cardiomegaly with mild vascular congestion. D/ / Jackson Dailey MD / Jakcson Dailey MD Interpreting Provider: Jackson Dailey MD Head CT 04/29/19 11:42 IMPRESSION: No acute intracranial abnormality. Stable subacute infarct involving the left temporal occipital lobe. Bilateral old basal ganglia lacunes not significantly changed. Mild chronic microvascular disease within the periventricular white matter. D/ / 04/29/2019 12:54:47 Baltazar Ruiz MD / vel Interpreting Provider: Baltazar Ruiz MD Brain MRI 04/29/19 14:11 IMPRESSION: 1. Slight interval increase in extent and conspicuity of an acute ischemic infarct in the left posterior cerebral artery territory. 2. No significant mass effect. 3. Stable suspected left occipital petechial hemorrhage. 4. Multifocal remote lacunar infarcts. D/ / Javier Riggins / Javier Riggins Interpreting Provider: Javier Riggins Shoulder X-Ray 04/30/19 07:27 IMPRESSION: Small intra-articular osseous fragment noted near the inferior margin of the glenoid. Exact donor site is not apparent. Consider CT correlation in the setting of acute trauma. D/ / 04/30/2019 08:28:59 Maximiliano Clements MD / [email or web address] Interpreting Provider: Maximiliano Clements MD Consult Discharge Plan - Plan Referrals: Tasia Herrera, ENGINEERING SPECIALIST [Primary Care Provider] - (2) CVA (cerebral vascular accident) Qualifiers: CVA mechanism: occlusion Precerebral and cerebral artery: posterior cerebral artery Laterality of affected vessel: left Qualified Code(s): I63.532 - Cerebral infarction due to unspecified occlusion or stenosis of left posterior cerebral artery (3) HTN (hypertension) Qualifiers: Hypertension type: essential hypertension Qualified Code(s): I10 - Essential (primary) hypertension (4) HLD (hyperlipidemia) Qualifiers: Hyperlipidemia type: mixed hyperlipidemia Qualified Code(s): E78.2 - Mixed hyperlipidemia
[2019-04-30 09:23] LABS: Alanine Aminotransferase 10 Units/L (7-52); Albumin 3.9 g/dL (3.5-5.7); Albumin/Globulin Ratio 1.4 (1.1-2.2); Alkaline Phosphatase 71 Units/L (34-104); Aspartate Amino Transferase 10 Units/L (13-39); Bilirubin,Total 0.8 mg/dL (0.3-1.0); Blood Urea Nitrogen 12 mg/dL (8-23); Calcium 9.4 mg/dL (8.6-10.3); Carbon Dioxide 25 mEq/L (23-29); Chloride 105 mEq/L (98-107); Globulin 2.8 g/dL (2.4-3.5); Glucose 113 mg/dL (70-105); Osmolality,Calculated 289 (280-300); Potassium 3.7 mEq/L (3.5-5.1); Sodium 139 mEq/L (136-145); Total Protein 6.7 g/dL (6.4-8.9)
[2019-04-30 09:28] LABS: Hematocrit 47.9 % (37.5-50.1); Hemoglobin 16.2 g/dL (12.9-16.9); Mean Corpuscular HGB Conc 33.8 g/dL (31.6-35.5); Mean Corpuscular Volume 91.8 fL (83.0-100.0); Mean Platelet Volume 11.3 fL (9.4-12.4); Platelet Count 140 K/mcL (140-400); Red Blood Count 5.22 M/mcL (4.19-5.50); Red Cell Distribution Width 12.6 % (11.5-14.5); White Blood Count 8.7 K/mcL (4.3-11.1)
[2019-04-30 09:35] LABS: BUN/Creatinine Ratio 18 (6-26); eGFR For African Americans > 60 (> 60); eGFR For Non-African Americans > 60 (> 60)
--- NOTE | 2019-04-30 11:20 | Neurology Progress Note ---
<Tay Ryder J - Last Filed: 04/30/19 15:18> Date of Encounter: 04/30/19 Time of Encounter: 11:16 Assessment and Plan (1) CVA (cerebral vascular accident) Current Visit: No Status: Ruled-out Negative MRI brain CVA ruled out C/w Plavix and Statin meds Still need outpatient f/u with Dr. Holland d/t untreated DEJON Qualifiers: CVA mechanism: occlusion Precerebral and cerebral artery: posterior cerebral artery Laterality of affected vessel: left Qualified Code(s): I63.532 - Cerebral infarction due to unspecified occlusion or stenosis of left posterior cerebral artery (2) Seizures Current Visit: Yes Status: Acute EEG does not reveal any epileptic activity but does reveal left hemispheric slowing However, given his sx were consistent with tonic-clonic seizure activity I am recommending AED's Continue Keppra at 500mg PO BID; will need at d/c as well Recommend f/u with Dr. Holland in the office in 2-3 weeks Refrain from driving for 6 months seizure free; discussed with patient Continue seizure precautions and PRN ativan while inpatient Okay to d/c at the discretion of the primary team Neurology will sign off at this time Subjective Principal diagnosis: seizures Interval history: Seen in f/u today with concerns for seizures. No return of seizure activity since admission. EEG was abnormal showing left hemispheric abnormalies with eiologies including encephalopathy, postictal or degenerative. Clinically, he is stable without any further events or neurological concerns. Objective - Constitutional Vitals: Temp Pulse Resp BP Pulse Ox 98.0 F 81 14 147/86 95 04/30/19 06:46 04/30/19 06:46 04/30/19 06:46 04/30/19 06:46 04/30/19 06:46 Exam: Examination: General Examination: *CONSTITUTIONAL: Alert and oriented x3, no acute distress *GENERAL APPEARANCE OF PATIENT appears healthy and well groomed *EYES: pupils equal, round, reactive to light and accommodation, conjunctiva clear *CARDIOVASCULAR: RRR, no peripheral edema, distal temperature normal, dorsalis pedis pulses normal. Refer to vital signs * MUSCULOSKELETAL: *GAIT AND STATION: Deferred *ASSESSMENT OF MUSCLE STRENGTH IN THE UPPER AND LOWER EXTREMITIES right deltoid, bicep, tricep, warp preparer strength 5/5, bilateral hip flexors ,anterior tibialis, dorsoflexion of the foot 5/5. Left bicep, tricep and deltoid weakness 4/5 with diminished left-sided warp preparer strength 4/5. *MUSCLE TONE IN THE UPPER AND LOWER EXTREMITIES normal. No abnormal movements, fasciculations or atrophy identified. Neurological: *ORIENTATION to person, situation, time and place *LANGUAGE AND FUNCTION no significant aphasia or dysarthia was noted. *ATTENTION AND CONCENTRATION are normal *LANGUAGE FUNCTION no significant aphasia or dysarthia was noted. *FUND OF KNOWLEDGE aware of current events, past history, vocabulary *MENTAL attention span and concentration normal. *CN II optic fundi were normal, no papilledema noted. *CN III,IV, PERRLA extraocular eye movements were full, no nystagmus and no ptosis noted. *CN V shows normal sensation and jaw opens symmetrically. *CN VII shows normal facial movement symmetrically, upper and lower bilaterally. *CN VIII shows no significant hearing loss on exam *CN IX-X palate elevated symmetrically *CN XI normal strength in the sternocleidomastoid muscles, symmetrical shoulder shrugging. *CN XII tongue protruded in the midline, with normal strength and movement. *SENSORY EXAMINATION light touch intact *REFLEXES: deep tendon reflexes were absent diffusely, no pathological reflexes were noted. *CEREBELLAR TESTING normal finger to nose *PAIN LEVEL 0/10 Results - Laboratory Findings CBC and BMP: 04/30/19 08:32 04/30/19 08:32 Abnormal lab findings: Abnormal lab results PT 12.4 Seconds (9.4-12.1) H 04/29/19 11:26 Carbon Dioxide 20 mEq/L (23-29) L 04/29/19 11:26 Creatinine 0.67 mg/dL (0.70-1.30) L 04/30/19 08:32 Glucose 113 mg/dL (70-105) H 04/30/19 08:32 POC Glucose 125 mg/dL (70-99) H 04/29/19 20:36 AST 10 Units/L (13-39) L 04/30/19 08:32 Ur Leukocyte Esterase Trace (Negative) H 04/29/19 13:00 Ur Squamous Epith Cells Moderate per lpf (None-Few) H 04/29/19 13:00 Ur Culture Indicated? YES (NO) A 04/29/19 13:00 Consult Discharge Plan - Plan Referrals: Black,Tasia, ARMATURE REWINDER [Primary Care Provider] - Armando Hay MD [Non-Partnered Physician] - (needs follow up in 1-2 weeks ) <Radha Stone I - Last Filed: 04/30/19 15:59> Date of Encounter: 04/30/19 Assessment and Plan (1) CVA (cerebral vascular accident) Current Visit: No Status: Ruled-out Qualifiers: CVA mechanism: occlusion Precerebral and cerebral artery: posterior cerebral artery Laterality of affected vessel: left Qualified Code(s): I63.532 - Cerebral infarction due to unspecified occlusion or stenosis of left posterior cerebral artery (2) Seizures Current Visit: Yes Status: Acute I have personally performed a face to face diagnostic evaluation, including HPI, EXAM, which is included in the Assesment and plan, which was discussed with Tay Ryder CNP, I agree with the above outlined documentation. Patient seemed to be back to his baseline he did have a multiple risk factors for the stroke suggest a strong risk factor modification Continue an antiseizure medication with seizure precautions Stable from neurology standpoint okay to discharge to home Radha Stone MD. NeurologyI Objective - Constitutional Vitals: Temp Pulse Resp BP Pulse Ox 98.0 F 73 17 126/74 94 04/30/19 11:34 04/30/19 11:34 04/30/19 11:34 04/30/19 11:34 04/30/19 11:34 Results - Laboratory Findings CBC and BMP: 04/30/19 08:32 04/30/19 08:32 Abnormal lab findings: Abnormal lab results PT 12.4 Seconds (9.4-12.1) H 04/29/19 11:26 Carbon Dioxide 20 mEq/L (23-29) L 04/29/19 11:26 Creatinine 0.67 mg/dL (0.70-1.30) L 04/30/19 08:32 Glucose 113 mg/dL (70-105) H 04/30/19 08:32 POC Glucose 125 mg/dL (70-99) H 04/29/19 20:36 AST 10 Units/L (13-39) L 04/30/19 08:32 Ur Leukocyte Esterase Trace (Negative) H 04/29/19 13:00 Ur Squamous Epith Cells Moderate per lpf (None-Few) H 04/29/19 13:00 Ur Culture Indicated? YES (NO) A 04/29/19 13:00
--- NOTE | 2019-04-30 13:28 | Orthopedic Consult Note ---
Date of Encounter: 04/30/19 Time of Encounter: 13:26 Assessment and Plan (1) Shoulder fracture, left Current Visit: Yes Status: Acute The diagnosis and treatment options were discussed with the patient and imaging studies were reviewed. He has a comminuted impacted fracture of the humeral head adjacent to the lesser tuberosity, likely as a result of his seizure. With his recent CVA and new onset seizures would recommend nonsurgical treatment at this time with a sling and activity modification with no lifting. F/u in 1-2 weeks as outpatient to discuss further treatment options and possible physical therapy. Qualifiers: Encounter type: initial encounter Fracture type: closed Qualified Code(s): S42.92XA - Fracture of left shoulder girdle, part unspecified, initial encounter for closed fracture History of Present Illness HPI: Mr. Wolfe is a 63 year old male admitted with mental status changes following seizure like activity yesterday. Patient was witnessed by family having seizure- like activity while unconscious for about 3 minutes. The patient just had a CVA last week according the family. Patient was admitted following this event and neurology is following. Today the patient reported left shoulder pain, new since yesterday and stated that he landed on the left side during his episode. Pain is anterior and worse with motion. Denies previous shoulder pain or surgery. Past Med Surg Social Fam HX - Past Medical History Medical history: CVA, diabetes, hyperlipidemia, hypertension Psychiatric history: no psych history - Past Surgical History Surgical History: no surgical history - Social History Smoking Status: Current every day smoker Packs per day: 1 Smokeless Tobacco Status: No Alcohol use: none Drug use: none - Family History Mother Hx Family Cardiac Disorders: Yes Medications and Allergies Tamsulosin HCl [Flomax] 0.4 mg PO BID 04/21/19 [History] Atorvastatin [Lipitor] 40 mg PO HS #30 tablet 04/22/19 [Rx] Clopidogrel [Plavix] 75 mg PO DAILY #30 tablet 04/22/19 [Rx] Lisinopril [Zestril] 10 mg PO DAILY #30 tablet 04/22/19 [Rx] amLODIPine [Norvasc] 5 mg PO DAILY #30 tablet 04/22/19 [Rx] metFORMIN [Glucophage] 500 mg PO BIDWM #60 tablet 04/22/19 [Rx] Allergy/AdvReac Type Severity Reaction Status Date / Time No Known Allergies Allergy Verified 08/26/18 10:40 All Systems Reviewed: The remainder of the systems were reviewed and are negative except as noted in the HPI Physical Exam - Constitutional Vitals: Temp Pulse Resp BP Pulse Ox 98.0 F 73 17 126/74 94 04/30/19 11:34 04/30/19 11:34 04/30/19 11:34 04/30/19 11:34 04/30/19 11:34 Exam: Consult Exam: Constitutional -Vitals reviewed -The patient is well developed and well nourished. -Mood is pleasant. -The patient is well groomed. Psychiatric -The patient is fully alert and oriented x 3. Respiratory: -Respiratory effort normal Abdomen: -Soft abdomen -Non tender -Non distended: Left upper extremity: -No deformities. The overlying skin is intact. No obvious signs of acute trauma. -Tenderness to palpation over the anterior shoulder. Pain with passive and active motion of the shoulder. Weakness with IR. +belly press. -No significant pain with active motion of the elbow, wrist, and fingers within the limits of the bed. -Able to make an "OK" sign, cross the index and long fingers, and extend the thumb. -Sensation grossly intact to light touch throughout the median, radial, and ulnar distributions. -Radial pulse is present; Fingers have good capillary refill. Right upper extremity: -No deformities. The overlying skin is intact. No obvious signs of acute trauma. -No tenderness to palpation throughout. -No significant pain with passive motion of the shoulder, elbow, wrist, and fingers within the limits of the bed. -Able to make an "OK" sign, cross the index and long fingers, and extend the thumb. -Sensation grossly intact to light touch throughout the median, radial, and ulnar distributions. -Radial pulse is present; Fingers have good capillary refill. Left lower extremity: -No deformities. The overlying skin is intact. No obvious signs of acute trauma. -No tenderness to palpation throughout. -No pain with passive motion of the hip, knee, ankle, and toes within the limits of the bed. -No pain with axial loading of the thigh. -Able to dorsiflex and plantarflex the ankle and toes. -Sensation is grossly intact to light touch throughout the sural, saphenous, superficial peroneal, and deep peroneal distributions. -Toes have good capillary refill. Right lower extremity: -No deformities. The overlying skin is intact. No obvious signs of acute trauma. -No tenderness to palpation throughout. -No pain with passive motion of the hip, knee, ankle, and toes within the limits of the bed. -No pain with axial loading of the thigh. -Able to dorsiflex and plantarflex the ankle and toes. -Sensation is grossly intact to light touch throughout the sural, saphenous, superficial peroneal, and deep peroneal distributions. -Toes have good capillary refill. Results - Labs Result Diagrams: 04/30/19 08:32 04/30/19 08:32 Labs: Abnormal lab results PT 12.4 Seconds (9.4-12.1) H 04/29/19 11:26 Carbon Dioxide 20 mEq/L (23-29) L 04/29/19 11:26 Creatinine 0.67 mg/dL (0.70-1.30) L 04/30/19 08:32 Glucose 113 mg/dL (70-105) H 04/30/19 08:32 POC Glucose 125 mg/dL (70-99) H 04/29/19 20:36 AST 10 Units/L (13-39) L 04/30/19 08:32 Ur Leukocyte Esterase Trace (Negative) H 04/29/19 13:00 Ur Squamous Epith Cells Moderate per lpf (None-Few) H 04/29/19 13:00 Ur Culture Indicated? YES (NO) A 04/29/19 13:00 H & H 04/30/19 Range/Units 08:32 Hgb 16.2 (12.9-16.9) g/dL Hct 47.9 (37.5-50.1) % All other labs normal. - Diagnostic results Shoulder x-ray: report reviewed, image reviewed Shoulder CT: report reviewed, image reviewed (Comminuted impacted fracture of the humeral head adjacent to the lesser tuberosity) Consult Discharge Plan - Plan Referrals: Tasia Herrera, GABY [Primary Care Provider] -
[2019-04-30] MEDS: Acetaminophen 325 MG TABLET PO PRN (19:47)
[2019-05-01] MEDS: traMADol 50 MG TABLET PO PRN (00:01)
[2019-05-01] MEDS: levETIRAcetam 250 MG TABLET PO SCH (05:00)
[2019-05-01] MEDS: *HR* Heparin 5,000 UNIT/ML VIAL SQ SCH (05:00)
[2019-05-01 06:54] VITALS: BP 118/69
--- NOTE | 2019-05-01 09:23 | Discharge Summary ---
- NOTES TO OUTPATIENT PROVIDER Notes to Outpatient Provider: placed on Keppra 500mg po BID follow up with Dr Holland in 2 weeks. sling to L arm - no lifting follow up with ortho in 1-2 weeks Date of Encounter: 05/01/19 Time of Encounter: 09:21 - Discharge Diagnosis (1) CVA (cerebral vascular accident) Priority: Secondary Status: Ruled-out Qualifiers: CVA mechanism: occlusion Precerebral and cerebral artery: posterior cerebral artery Laterality of affected vessel: left Qualified Code(s): I63.5 32 - Cerebral infarction due to unspecified occlusion or stenosis of left posterior cerebral artery (2) HTN (hypertension) Priority: Secondary Status: Acute Qualifiers: Hypertension type: essential hypertension Qualified Code(s): I10 - Essential (primary) hypertension (3) HLD (hyperlipidemia) Priority: Secondary Status: Acute Qualifiers: Hyperlipidemia type: mixed hyperlipidemia Qualified Code(s): E78.2 - Mixed hyperlipidemia (4) Tobacco dependence Priority: Secondary Status: Acute (5) Diabetes mellitus type 2 in obese Priority: Secondary Status: Chronic (6) New onset seizure Priority: Primary Status: Acute Hospital course: Mr. Wolfe is a 63 year old male past medical history of hypertension h yperlipidemia TIA presented to [facility] ED with mental status changes. According to the family he had been alert earlier in the morning and was found by family members having seizure-like activity on the ground which lasted approximately 3 minutes. According to the family patient had a previous CVA last week. Patient did display some slurred speech after becoming more awake and was brought to the ER for evaluation. CT of head showed subacute left occipital/temporal CVA he was initiated on IV Keppra and neurology was consulted-he underwent a MRI of brain which was negative EEG does not reveal any epileptic activity-neurology recommending continuation of Keppra due to symptoms consistent with tonic-clonic seizure activity. Patient will continue with Plavix and statin Patient did complain of left shoulder pain-imaging was completed which did reveal a comminuted impacted fracture of the humeral head adjacent to the lesser tuberosity-orthopedics were consulted recommending patient follow-up in 1-2 weeks as an outpatient to discuss further treatment options and possibly physical therapy. Patient was placed in a sling per orthopedics recommendations.-Currently patient is alert and appropriate following simple commands no seizure activity noted patient will be discharged home with a prescription for Keppra as well as Lortab. He will follow-up with primary care provider as well as neurology and orthopedics. Patient verbalizes understanding and he is ready for discharge at this time. - Time Spent with Patient Total time spent providing and/or coordinating discharge services: - Discharge Medications Prescriptions: New levETIRAcetam [Keppra] 500 mg PO Q12HR #120 tablet Hydrocodone/Acetaminophen [[place] 5-325 Tablet] 1 each PO Q6HR PRN 14 Days #56 tablet PRN Reason: Pain Continued Tamsulosin HCl [Flomax] 0.4 mg PO BID Atorvastatin [Lipitor] 40 mg PO HS #30 tablet Clopidogrel [Plavix] 75 mg PO DAILY #30 tablet Lisinopril [Zestril] 10 mg PO DAILY #30 tablet amLODIPine [Norvasc] 5 mg PO DAILY #30 tablet metFORMIN [Glucophage] 500 mg PO BIDWM #60 tablet Home Medications: Tamsulosin HCl [Flomax] 0.4 mg PO BID 04/21/19 [History] Atorvastatin [Lipitor] 40 mg PO HS #30 tablet 04/22/19 [Rx] Clopidogrel [Plavix] 75 mg PO DAILY #30 tablet 04/22/19 [Rx] Lisinopril [Zestril] 10 mg PO DAILY #30 tablet 04/22/19 [Rx] amLODIPine [Norvasc] 5 mg PO DAILY #30 tablet 04/22/19 [Rx] metFORMIN [Glucophage] 500 mg PO BIDWM #60 tablet 04/22/19 [Rx] Hydrocodone/Acetaminophen [[place] 5-325 Tablet] 1 each PO Q6HR PRN 14 Days #56 tablet 05/01/19 [Rx] levETIRAcetam [Keppra] 500 mg PO Q12HR #120 tablet 05/01/19 [Rx] Allergies/Adverse Reactions: Allergy/AdvReac Type Severity Reaction Status Date / Time No Known Allergies Allergy Verified 08/26/18 10:40 Date of admission: 04/29/19 15:31 Primary care physician: Tasia Herrera CNP Consults: 04/29/19 13:29 Consult to Neurology [CONS] Stat Consulting Provider: Neurology [facility] Reason for Consult: Seizure like activity Call Completed: No 04/29/19 16:25 Consult to Interpret Exam [CONS] Routine Consulting Provider: Quintin Vazquez Consult to Interpret Exam: Interpret EEG 04/30/19 08:12 Consult to Orthopedic Surgery [CONS] Routine Consulting Provider: Orthopedic and Sports Medicine Reason for Consult: left shoulder fractrue Call Completed: Yes Discharging clinician: Toña Peters Anticipated date of discharge: 05/01/19 - Constitutional Vitals: Temp Pulse Resp BP Pulse Ox 98.2 F 88 16 118/69 93 05/01/19 06:50 05/01/19 06:50 05/01/19 06:50 05/01/19 06:50 05/01/19 06:50 General appearance: Present: A&O X 3 Exam: Skin: Free of rash and discoloration. Eyes: Sclera is white. There is no discharge from eyes. ENMT: Oral/pharyngeal mucosa is normal in appearance. There is no discharge from nose or ears. Respiratory: Normal breath sounds with no crackles and wheezes bilaterally. CV: Heart is regular with no gallop or murmur. GI: Abdomen is flat and soft with no palpable mass or visceromegaly. : There is no tenderness in patient's flanks bilaterally. Neuro exam: He has good strength in upper and lower extremities. He has normal eye movements. Psychiatric: He has normal affect. His thought process is appropriate to the situation. Extremities-he has good grasp as well as brisk capillary refill bilaterally left arm currently in sling - Patient Status Disposition: Home, Self-Care Condition: Fair Functional capacity at discharge: independent ambulation Overall status at discharge: patient is back to baseline - Discharge Instructions Follow Up With: Tasia Herrera CNP [Primary Care Provider] - Armando Hay MD [Non-Partnered Physician] - (needs follow up in 1-2 weeks ) Additional Instructions: Follow up with neurology 1-2 weeks - Diet and Activity Activity: increase activity as tolerated Diet: advance to your usual diet
[2019-05-01] MEDS: Insulin LISPRO 300 UNITS/3 ML VIAL SQ SCH (09:34)
[2019-05-01] MEDS: amLODIPine 5 MG TABLET PO SCH (09:36)
[2019-05-01] MEDS: Acetaminophen 325 MG TABLET PO PRN (09:36)
== END 2019-05-01 11:05 | disposition home or self-care (01) | DRG 101 ==
LOC: EMEROOARM 11:24 → 3BNU 11:24
PROVIDERS: ADMIT Internal Medicine Nephrology; ATTEND Internal Medicine Nephrology